=== PATIENT | female | born 1940 | race Caucasian/White ===

== ENCOUNTER 2021-07-29 11:05 | Inpatient (IN) | payer OTHER, SELFPAY ==
[2021-07-29] VITALS (57 sets, daily range): BP systolic 64–127; BP diastolic 36–73; PULSE 78–124; RESP 19–56; TEMP 33.9–37.7; O2SAT 93–99; BMI 24.3
--- NOTE | ~2021-07-29 | XR_ITS ---
EXAMINATION: XR chest 1V portable DATE: 08/05/2021 05:30 INDICATION: Septic shock. TECHNIQUE: A single frontal view of the chest was obtained. COMPARISON: Chest single view 08/04/2021, chest CT 08/03/2021 FINDINGS: Calcified right lung nodules and calcified right hilar lymph nodes are consistent with old granulomatous disease. The lung volumes are small. There are small pleural effusions. There are airsp carlos a opacities in the perihilar regions and at the lung bases. No pneumothorax. Cardiomegaly is noted. There is a right-sided central venous catheter with tip in right shoulder. IMPRESSION: 1. Airspace opacities in the perihilar regions and at the lung bases with improvement on the right an d worsening on the left, consistent with atelectasis versus pneumonia. 2. Small pleural effusions. 3. Cardiomegaly. Reviewed, dictated and finalized at location A. LY SUPPORT SPECIALIST IMPRESSION: 1. Airspace opacities in the perihilar regions and at the lung bases with impro vement on the right and worsening on the left, consistent with atelectasis vers us pneumonia. 2. Small pleural effusions. 3. Cardiomegaly.
--- NOTE | ~2021-07-29 | US_ITS ---
EXAMINATION: US venous doppler LE EXAM DATE: 07/29/2021 14:55 INDICATION: Rule out DVT TECHNIQUE: Multiple grayscale, color flow and Doppler images of the lower extremity deep venous syste ms bilaterally were obtained and reviewed. There is no prior study for comparison. FINDINGS: Right side: The right common femoral, femoral and profunda veins demonstrate normal color flow, respi ratory variation, augmentation and compressibility. Compressibility, color flow confirmed within the right popliteal, posterior tibial, peroneal, and greater saphenous veins. Left side: The left common femoral, femoral and profunda veins demonstrate normal color flow, respira tory variation, augmentation and compressibility. Compressibility, color flow confirmed within the l eft popliteal, posterior tibial, peroneal, and greater saphenous veins. IMPRESSION: 1. No lower extremity deep venous thrombosis bilaterally. Reviewed, dictated and finalized at location . AND MARBLE INSTALLER
--- NOTE | ~2021-07-29 | XR_ITS ---
EXAMINATION: XR chest 1V portable INDICATION: Septic shock TECHNIQUE: Portable AP chest at 0515 hours COMPARISON: 07/29/2021 FINDINGS: A right subclavian central venous catheter ends with its tip in the proximal right atrium. The lung volumes are low. Small pleural effusions are present. Cardiomegaly is noted. There are minim al airspace opacities of the lung bases. Calcified pulmonary nodules are consistent with old granulom atous disease. IMPRESSION: 1. Small pleural effusions. 2. Minimal bibasilar airspace opacity, likely atelectasis. Reviewed, dictated and finalized at location A. ERIZER
--- NOTE | ~2021-07-29 | CT_ITS ---
EXAMINATION: CT chest abdomen pelvis wo con DATE: 08/03/2021 10:24 INDICATION: Septic shock TECHNIQUE: Computed tomography (CT) of the chest, abdomen, and pelvis was performed without intraveno us contrast. Automated exposure control and iterative reconstruction technique were employed. The dos e-length product was 1717.15 mGy-cm. COMPARISON: 07/30/2021 FINDINGS: CHEST CT: Small bilateral pleural effusions with compressive atelectasis in the dependent aspect of all of the lobes of both lungs. Calcified right middle lobe nodules and calcified right hilar lymph nodes consis tent with old granulomatous disease. Cardiomegaly with pulmonary vascular congestion but without jim k pulmonary edema. No pericardial effusion. Thoracic aorta is normal in caliber. No pathologically en larged thoracic lymphadenopathy. Right subclavian central venous catheter with distal tip at the high right atrium. Chronic appearing T11 compression fracture with 20% anterior to central vertebral body height loss. ABDOMEN/PELVIS CT: Gallbladder is not visualized and likely surgically absent. Multiple hepatic and splenic calcificatio ns consistent with old granulomatous disease. Pancreas is normal. Again seen are bilateral adrenal no dules which are of relatively low density and which have been present with some increase in size sinc e 2015 which would favor adenomas. Multiple bilateral renal cysts, the largest on the left measuring 10 cm in maximal diameter. Conti catheter within the decompressed bladder. Uterus and bilateral adnex a are unremarkable. Small amount of ascites throughout the abdomen and pelvis. Again seen is diffuse wall thickening of the colon consistent with colitis. No pneumatosis, abscess or free intraperitoneal gas. A rectal tube is in place. There is high attenuation oral contrast material scattered throughou t the small bowel and colon. Postoperative change of prior gastric bypass procedure. Lumbar dextrosco liosis with severe spondylosis. Left total hip arthroplasty. Diffuse body wall edema. Again seen are relatively acute appearing left fifth-eighth rib fractures. IMPRESSION: 1. Persistent diffuse colonic wall thickening consistent with colitis which could be infectious, infl ammatory or ischemic in etiology. 2. Anasarca with small bilateral pleural effusions, small amount of ascites and extensive body wall e gregorio. 3. A few relatively acute appearing nondisplaced anterior left fifth-eighth rib fractures. Reviewed, dictated and finalized at location A. [employer] IMPRESSION: 1. Persistent diffuse colonic wall thickening consistent with colitis which cou ld be infectious, inflammatory or ischemic in etiology. 2. Anasarca with small bilateral pleural effusions, small amount of ascites and extensive body wall edema. 3. A few relatively acute appearing nondisplaced anterior left fifth-eighth rib fractures.
--- NOTE | ~2021-07-29 | CT_ITS ---
EXAMINATION: CT chest abdomen pelvis wo con EXAM DATE: 07/29/2021 15:49 INDICATION: Fall, altered mental status, sepsis. TECHNIQUE: Spiral CT of the chest, abdomen and pelvis was performed without contrast. Axial, beard l and sagittal images chest, abdomen and pelvis were reviewed. Coronal maximum intensity pixel image s of chest reviewed. The dose-length product (DLP) for this examination was 1284.42 mGy-cm. The exp osure was tailored according to patient size (auto mA exposure control), and iterative reconstruction (ASIR) was used as additional dose reduction technique. Comparison is made to prior examination from 10/13/2014. FINDINGS: CHEST: There is dependent bilateral subsegmental atelectasis. There are no pleural or pericardial e ffusions. Tracheobronchial tree is patent. There is no mediastinal, hilar or axillary lymphadenop athy. There is no pneumothorax. There is cardiomegaly. Right-sided subclavian venous line. No ev idence of coronary arterial calcification. ABDOMEN PELVIS: Left 6th rib has age-indeterminate fracture in the mid clavicular line. Splenic and l iver granulomata. Bilateral adrenal gland low density lesions, probably multiple adenomas, larger on both sides compared to 2015 exam. Pancreas is unremarkable. Gallbladder is unremarkable. No biliary obstruction. There is no nephrolithiasis or hydronephrosis. Multiple large bilateral renal cysts, l argest on the left side measuring 15 cm. The uterus is not identified and has likely been surgically resected. The bladder is collapsed with Conti catheter balloon anchor inside. There is no retroper itoneal or pelvic lymphadenopathy. There is mild diffuse colonic wall edema with fluid throughout the colon. Consider enterocolitis. The re are no findings to suggest appendicitis. The stomach and small bowel are unremarkable. No jasmin e intraperitoneal gas. There are no osteoblastic or osteolytic lesions identified. Moderate upper l umbar dextroscoliosis. Left hip replacement. IMPRESSION: 1. Findings consistent with colitis or even colonic fluid enterocolitis. 2. Increase in size of renal cysts and adrenal lesions probably adenomas. 3. Cardiomegaly. Dependent bibasilar subsegmental atelectasis. 4. Age indeterminate left 6th rib fracture anterolaterally, clinical correlation. Reviewed, dictated and finalized at location G. L SMELTER IMPRESSION: 1. Findings consistent with colitis or even colonic fluid enterocolitis. 2. Increase in size of renal cysts and adrenal lesions probably adenomas. 3. Cardiomegaly. Dependent bibasilar subsegmental atelectasis. 4. Age indeterminate left 6th rib fracture anterolaterally, clinical correlati on.
--- NOTE | ~2021-07-29 | CT_ITS ---
EXAMINATION: CT abdomen pelvis wo con EXAM DATE: 07/30/2021 10:58 INDICATION: Ischemic Colitis TECHNIQUE: Spiral CT of the abdomen was performed without contrast. Axial, coronal and sagittal morris ges of the abdomen were reviewed. The dose-length product (DLP) for this examination was 662.75 mGy- cm. The exposure was tailored according to patient size (auto mA exposure control), and iterative re construction (ASIR) was used as additional dose reduction technique. Comparison is made to prior exam ination from 07/29/2021. FINDINGS: Only mild aortic arterial sclerosis. Splenic and liver granulomata. Bilateral adrenal glan d low density lesions, statistically most likely adenomas. Pancreas is unremarkable. Liver is unremar kable. Patient may have had cholecystectomy. Pancreas unremarkable. There is no nephrolithiasis or hy dronephrosis. Multiple large bilateral renal cysts, largest on the left side measuring 15 cm. Possib le identification of an atrophic uterus. The bladder is collapsed with Conti catheter balloon anchor inside. There is no retroperitoneal or pelvic lymphadenopathy. There is mild diffuse colonic wall edema with fluid throughout the colon. Consider colitis or enteroc olitis. No pneumatosis or portal venous gas. Mildly dilated small bowel loops also with air-fluid lev els. There are no findings to suggest appendicitis. There is been interval placement of a nasogastri c tube. No free intraperitoneal gas. There are no osteoblastic or osteolytic lesions identified. Moderate upper lumbar dextroscoliosis. Left hip replacement. Possible acute left 6th rib fracture. There is mild cardiomegaly. There is progression of dependent subsegmental atelectasis and developmen t of trace pleural effusions. IMPRESSION: 1. Findings most consistent with enteritis and colitis unchanged. No pneumatosis, portal venous gas o r free intraperitoneal gas. 2. Bibasilar dependent segmental atelectasis, trace pleural effusions. 3. Possible left 6th rib fracture. Reviewed, dictated and finalized at location B. L GRINDER IMPRESSION: 1. Findings most consistent with enteritis and colitis unchanged. No pneumatosi s, portal venous gas or free intraperitoneal gas. 2. Bibasilar dependent segmental atelectasis, trace pleural effusions. 3. Possible left 6th rib fracture.
--- NOTE | ~2021-07-29 | XR_ITS ---
EXAMINATION: XR abdomen NG/feed tube insert DATE: 07/30/2021 07:09 INDICATION: Nasogastric tube placement TECHNIQUE: A supine view of the abdomen and lower chest was obtained for evaluation of feeding tube placement. COMPARISON: CT dated 07/29/2021 FINDINGS: Nasogastric tube tip in proximal side port in the body of the stomach. Right subclavian central venou s catheter tip near the superior cavoatrial junction. A few gas-filled but not frankly loops of bowel in the abdomen which is nonspecific. Mild bibasilar atelectasis and a few calcified nodules in the r ight lower lung zone consistent with old granulomatous disease. Cardiomegaly. Lumbar dextroscoliosis with severe spondylosis. IMPRESSION: 1. Nasogastric tube in stomach. 2. Nonspecific bowel gas pattern. 3. Cardiomegaly. Reviewed, dictated and finalized at location A. TIC YARN TWISTER HELPER
--- NOTE | ~2021-07-29 | XR_ITS ---
XR chest port-a-cath/central 07/29/2021 12:45 Indication: Central line placement Procedure: AP portable chest Comparison: 09/29/2009 Findings: There is right upper lobe airspace disease. Right subclavian PICC line tip near the cavoatr ial junction. Cardiomegaly. Elevated right diaphragm. Impression: 1: Right upper lobe airspace disease, suspicious for pneumonia. 2: Cardiomegaly. Reviewed, dictated and finalized at location A. ER BARREL Impression: 1: Right upper lobe airspace disease, suspicious for pneumonia. 2: Cardiomegaly.
--- NOTE | ~2021-07-29 | CT_ITS ---
EXAMINATION: CT brain wo con, CT cervical spine wo con EXAM DATE: 07/29/2021 15:48 INDICATION: ams, fall TECHNIQUE: Spiral CT of the head was performed without contrast. Axial, coronal and sagittal images were reviewed. Spiral CT of the cervical spine was performed without contrast. Axial images were rev iewed. Coronal and sagittal reformatted images were also reviewed. The dose-length product (DLP) fo r this examination was 605.33 (accession [id number]), 355.15 (accession [id number]) mGy-cm. The exposure was tailored according to patient size, and iterative reconstruction (ASIR) was used as additional dose reduction technique. Compared to head CT from 09/29/2009. FINDINGS: HEAD CT: There is no acute intraparenchymal hemorrhage. No evidence of intraparenchymal brain mass l esion. No evidence of acute infarction. There is no mass effect or midline shift. There is no obstru ctive hydrocephalus suspected. There are no extra-axial collections. There are no acute calvarial f ractures. The orbits are unremarkable. Soft tissue is unremarkable. The visualized sinuses and mas toid air cells are well aerated. CERVICAL CT: There is no evidence of acute cervical fracture. The odontoid process is intact. Pre- dens space is normal. Prevertebral soft tissue is normal. There are no soft tissue abnormalities id entified. There is no disc space widening or traumatic vertebral body subluxation suspected. Modera te to severe disc disease at C4-5, moderate to severe bilateral neural foraminal stenosis at these 2 levels. A detailed level by level evaluation of spondylosis can be added as addendum if requested. IMPRESSION: 1. No acute intracranial findings or cervical fracture. 2. Moderate to severe midcervical spondylosis. Reviewed, dictated and finalized at location G. S BRANCH MANAGER IMPRESSION: 1. No acute intracranial findings or cervical fracture. 2. Moderate to severe midcervical spondylosis.
--- NOTE | ~2021-07-29 | XR_ITS ---
EXAMINATION: XR barium swallow modified DATE: 08/01/2021 14:30 INDICATION: Dysphagia. TECHNIQUE: The patient was given barium-containing material of multiple consistencies to swallow by jesus nicholson speech pathologist while I performed fluoroscopy. Dose-area product was 3.702 Gy-cm2. 7.1 minutes fluoroscopy time FINDINGS: Oral Stage: Reduced lingual movement Pharyngeal Phase: Reduced laryngeal elevation and laryngeal abduction Reduced tongue base retraction Reduced pharyngeal squeeze Vallecular and piriform sinus residue Laryngeal penetration and aspiration Cervical/Esophageal Stage: Within functional limits IMPRESSION: Modified esophagram findings as above. Please refer to the speech [facility]. Reviewed, dictated and finalized at Location A. Reviewed, dictated and finalized at location A. OBIOLOGY ANALYST IMPRESSION: Modified esophagram findings as above. Please refer to the speech t herapy report for specific recommendations.
--- NOTE | 2021-07-29 11:24 | ECG_ITS ---
Measurements Intervals [place] Rate: 88 P: 35 AR: 140 QRS: -34 QRSD: 128 T: 79 QT: 353 QTc: 428 Interpretive Statements SINUS RHYTHM ATRIAL PREMATURE COMPLEX LEFT AXIS DEVIATION INTRAVENTRICULAR CONDUCTION DELAY DELAYED PRECORDIAL R/S TRANSITION MINIMAL Q WAVES- HIGH LATERAL LEADS BORDERLINE ST-T WAVE ABNORMALITY- HIGH LATERAL LEADS BASELINE ARTIFACT- II, III BORDERLINE ECG Electronically Signed On 07-29-2021 14:23:19 CREDIT COLLECTIONS MANAGER by Willis Herrera D.O.
--- NOTE | 2021-07-29 11:34 | PC.NURSE ---
Pt cleaned up from stool. Sol Chan applied, pt's temp increasing. Fluids infusing via fluid warmer.
[2021-07-29] MEDS: SODIUM CHLORIDE 0.9% IV 1,000 ML 999 ML IV CONT (11:37)
--- NOTE | 2021-07-29 11:47 | ED.GENADULT ---
HPI - General Adult General Chief complaint: Altered Mental Status Stated complaint: AMS Time Seen by Provider: 07/29/21 11:12 Source: patient, EMS and RN notes reviewed History of Present Illness HPI narrative: Patient is a 81 y/o female brought in by EMS for altered mental status. Patient is confused and unable to provide any history. She denies any pain. She reportedly had a welfare check yesterday around 2:45 PM found to be laying in bed but acting normal. This morning she was found laying on the ground lethargic by her helper. It's unknown how long she has been on the ground. Patient does not know if she fell or how she go to the floor. Related Data Home Medications Medication Instructions Recorded Confirmed acetaminophen 500 mg PO Q6H PRN 07/29/21 07/29/21 carbidopa-levodopa 1.5 tablet PO TID 07/29/21 07/29/21 clonazepam 0.5 mg PO BID 07/29/21 07/29/21 docusate sodium [Colace] 100 mg PO PRN PRN 07/29/21 07/29/21 famotidine 20 mg PO DAILY 07/29/21 07/29/21 furosemide 20 mg PO DAILY 07/29/21 07/29/21 meloxicam 15 mg PO DAILY 07/29/21 07/29/21 metoprolol succinate 100 mg PO DAILY 07/29/21 07/29/21 ofloxacin 1 drp OPHTHALMIC (EYE) DAILY 07/29/21 07/29/21 potassium chloride 20 meq PO DAILY 07/29/21 07/29/21 primidone 50 mg PO DAILY 07/29/21 07/29/21 primidone 100 mg PO HS 07/29/21 07/29/21 sertraline 100 mg PO DAILY 07/29/21 07/29/21 simvastatin 20 mg PO DAILY 07/29/21 07/29/21 trazodone 100 mg PO HS 07/29/21 07/29/21 Allergies Allergy/AdvReac Type Severity Reaction Status Date / Time No Known Allergies Allergy Unverified 12/23/16 09:33 Review of Systems Review of Systems: ROS unobtainable: Yes unobtainable due to mental status PMFSH Family History Family History Other Diabetes mellitus Family history of arthritis Family history of cardiovascular disease Hypertension Social History Social History Smoking status: Former smoker Alcohol intake: never Substance use: never Spiritual care concerns: No Exam Const: General: ill appearing Orientation/consciousness: oriented to person, oriented to place, confusion and lethargic HENMT: Head: normocephalic Ears: external ears normal General nose exam: Normal external nose present Eyes: General: appearance normal, both eyes and all related structures Conjunctivae: conjunctivae normal Neck: Neck: normal visual inspection and full ROM Chest: Chest palpation & inspection: normal inspection of the chest and no tenderness Resp: Effort & Inspection: normal respiratory effort Auscultation: clear to auscultation bilaterally Cardio: Rate: regular rate Rhythm: regular rhythm GI: GI Palp: No abdominal tenderness and Yes Soft to palpation Skin: General skin exam: normal color and turgor normal Neuro: General: oriented to person, oriented to place and confusion Cognition (Neuro): abnormal cognition Extrem: General: normal to inspection, full ROM and no pedal edema Psych: Appearance: grossly normal Mental Status: mental status grossly normal Attitude: Guarded attititude/behavior present Course Consultations Consultation #1: Discussed with MELIA Chaparro, who agrees to admit. Date: 07/29/21 Time: 13:24 Consultation #2: Discussed with Dr. Ulloa, who agrees to consult. Date: 07/29/21 Time: 13:28 Consultation #3: Discussed with Dr. Uribe, who agrees to consult. Date: 07/29/21 Time: 14:11 Vital Signs Vital signs: Vital Signs Temperature 34.8 C L 07/29/21 11:09 Pulse Rate 96 07/29/21 11:09 Respiratory Rate 27 H 07/29/21 11:09 Blood Pressure 116/68 07/29/21 11:09 Pulse Oximetry 96 07/29/21 11:09 Temperature 37.7 C H 07/29/21 16:11 Pulse Rate 98 07/29/21 16:11 Respiratory Rate 27 H 07/29/21 16:11 Blood Pressure 123/71 07/29/21 16:11 Pulse Oximetry 96 07/29/21 16:11 Procedures Central Line Placement Right SC:
[2021-07-29 12:02] LABS: Basophils Percent Auto 0.2 % (0.2-1.2); Hematocrit 44.8 % (37.0-47.0); Hemoglobin 14.2 g/dL (12.0-15.0); Immature Granulocyte Absolute 0.04 K/mm3 (0.00-0.031); Immature Granulocyte Percent A 0.5 % (0-0.5); Lymphocytes Absolute Auto 0.95 K/mm3 (0.9-3.2); Lymphocytes Percent Auto 11.4 % (18.3-44.2); Mean Corpuscular HGB Conc 31.7 g/dl (32-36); Mean Corpuscular Hemoglobin 33.3 pg (26-34); Mean Corpuscular Volume 105.2 fl (80-100); Mean Platelet Volume 11.1 fl (7.4-10.4); Monocytes Absolute Auto 0.5 K/mm3 (0.1-0.6); Monocytes Percent Auto 5.5 % (2.6-8.5); Neutrophils Absolute Auto 6.9 K/mm3 (1.3-6.7); Neutrophils Percent Auto 82.4 % (45.5-73.1); Nucleated Red Blood Cells Perc 0.2 % (0.0-0.2); Platelet Count Result 271 k/mm3 (150-375); Red Blood Count 4.26 M/mm3 (4.2-5.4); Red Cell Distribution Width 12.7 % (11.5-14.5); White Blood Count 8.4 K/mm3 (4.5-10.0)
--- NOTE | 2021-07-29 12:06 | PC.NURSE ---
Pt with hypotensive MAP's x 3, MD Crook in room preparing for central line placement. Pt very lethargic but responds to name/voice, answering questions, oriented to person and place.
[2021-07-29 12:12] LABS: INR 1.2; Prothrombin Time 14.9 Seconds (11.1-14.7)
[2021-07-29 12:13] LABS: Partial Thromboplastin Time 25.8 SECONDS (22.3-36.8)
[2021-07-29 12:25] LABS: Potassium 6.8 mmol/L (3.4-5.0)
[2021-07-29 12:37] LABS: Troponin I 0.069 ng/mL (0.000-0.034)
--- NOTE | 2021-07-29 12:40 | PC.NURSE ---
X-ray completed, MD Crook viewed and told this RN okay to use central line for norepinephrine infusion. Pt trendelenburg position and remains hypotensive. Sol ginger remains on high.
[2021-07-29 12:44] LABS: SARS-CoV-2 RNA PCR Negative
[2021-07-29 12:45] LABS: Add Urine Microscopic? YES; Appearance Urine Cloudy (Clear); Bilirubin Urine 1+ (Negative); Blood Urine 2+ (Negative); Color Urine Amber (Yellow); Glucose Urine UA Negative (Negative); Ketones Urine Trace mg/dL (Negative); Leukocyte Esterase Ur Trace LEU/UL (Negative); Nitrate Urine Negative (Negative); Protein Urine 1+ mg/dL (Negative); Specific Grav Ur 1.025 (1.001-1.035); Squamous Epithelial Cell Urine Few /hpf (Few)
[2021-07-29 12:51] LABS: Lactic Acid Reflex 8.6 mmol/L (0.7-2.1)
[2021-07-29] MEDS: NOREPINEPHRINE 8 MG/D5W 250 ML 8 MG/250 ML BAG 7.5 MG IV CONT (13:00)
[2021-07-29] MEDS: LACTATED RINGERS 2,200 ML/1,000 ML BAG 999 ML IV CONT (13:08)
[2021-07-29 13:09] LABS: Alanine Aminotransferase 29 U/L (4-35); Albumin Level 4.3 g/dL (3.5-5.1); Alkaline Phosphatase 102 U/L (38-126); Anion Gap 27 mmol/L (8-16); Aspartate Amino Transferase 252 U/L (14-36); Bilirubin,Total 0.9 mg/dL (0.2-1.3); Blood Urea Nitrogen 90 mg/dL (7-17); Calcium 8.9 mg/dL (8.4-10.2); Carbon Dioxide 8 mmol/L (22-30); Chloride 103 mmol/L (98-107); Creatine Kinase 8020 U/L (30-135); Estimated Glomerular Filt Rate 8; Glucose 133 mg/dL (65-110); Sodium 138 mmol/L (137-145)
[2021-07-29] MEDS: CALCIUM GLUCONATE 1,000 MG/10 ML VIAL 1000 MG IV PUSH (13:37)
[2021-07-29] MEDS: SODIUM BICARBONATE 8.4% 50 MEQ/50 ML SYRINGE IV PUSH ×2 (13:40→21:53)
[2021-07-29] MEDS: DEXTROSE 50% 25 GM/50 ML SYRINGE IV PUSH ×2 (13:56→21:52)
[2021-07-29] MEDS: INSULIN HUMAN REGULAR (*BKC) 100 UNITS/ML 10 UNITS IV PUSH ×2 (13:59→21:53)
[2021-07-29] MEDS: cefTRIAXone 2 GM in SODIUM CHLORIDE 0.9% IV 100 ML 200 ML IVPB (14:21)
--- NOTE | 2021-07-29 14:28 | WPDCNINT ---
Assessment and Plan Assessment and plan (1) Septic shock: Code(s): A41.9 - Sepsis, unspecified organism; R65.21 - Severe sepsis with septic shock Status: Acute Assessment and Plan: secondary to pneumonia with component of hypovolemia from diuresis check CT chest blood cultures and urine Legionella and pneumococcal antigen empiric Flagyl, Rocephin and azithromycin for aspiration and community-acquired coverage IV fluid bolus and infusion Levophed titration to maintain map (2) Acute kidney injury: Code(s): N17.9 - Acute kidney failure, unspecified Status: Acute Assessment and Plan: secondary to septic shock, rhabdomyolysis, hypovolemia from Lasix and NSAIDs that she is on CT abdomen pelvis is pending to rule out any stones or obstruction hold Lasix potassium and meloxicam aggressive volume resuscitation. she is receiving close to 3 L bolus in the ER and then will continue on IV fluids with bicarb at 150 mL/hour repeat BMP in few hours consult nephrology (3) Hyperkalemia: Code(s): E87.5 - Hyperkalemia Status: Acute Assessment and Plan: she is receiving insulin D50 calcium bicarb and Kayexalate in ER recheck BMP in few hours (4) Metabolic acidosis: Code(s): E87.2 - Acidosis Status: Acute Assessment and Plan: she received IV bicarb push for hyperkalemia in the ER. I will start patient on IV fluids with bicarb (5) Parkinsons: Code(s): G20 - Parkinson's disease Status: Acute Assessment and Plan: continue Sinemet and primidone (6) Pneumonia: Code(s): J18.9 - Pneumonia, unspecified organism Status: Acute Assessment and Plan: could be community-acquired pneumonia versus aspiration continue coverage for both as above (7) Encephalopathy: Code(s): G93.40 - Encephalopathy, unspecified Status: Acute Assessment and Plan: likely toxic metabolic encephalopathy as patient now is alert oriented x3 CT head is pending TSH is normal (8) Rhabdomyolysis: Code(s): M62.82 - Rhabdomyolysis Status: Acute Assessment and Plan: elevated CK likely from laying on floor. IV fluids with bicarb monitor CK level (9) Hyperlipidemia: Code(s): E78.5 - Hyperlipidemia, unspecified Status: Acute Assessment and Plan: hold statin due to elevated AST and CK level (10) Elevated liver enzymes: Code(s): R74.8 - Abnormal levels of other serum enzymes Status: Acute Assessment and Plan: AST elevated likely from rhabdomyolysis monitor (11) Elevated troponin: Code(s): R77.8 - Other specified abnormalities of plasma proteins Status: Acute Assessment and Plan: mildly elevated troponin in presence of septic shock and acute kidney injury EKG reviewed and no ST elevation. Patient denies any chest pain serial troponin add aspirin hold her beta-maria g due to shock check echocardiogram Additional Plan DVT prophylaxis - SCDs for now until head CT report is back Stress ulcer prophylaxis - continue home PPI Nutrition - renal diet Code Status - I discussed code status with patient in detail. She wishes to be DNR and DNI. I explained her that in event of cardiac arrest if we 'do not resuscitate' her, she will . Patient verbalized understanding of implications of her choice and states that she still wants to be DNR and DNI. I also spoke to patient's daughter and updated her with patient's choice of code status. I also updated her with patient's current status, results of testing, current treatment plan I answered all her questions. Total Critical Care Time - 40 minutes Due to a high probability of clinically significant, life threatening deterioration, the patient required my highest level of preparedness to intervene emergently and I personally spent this critical care time directly and personally managing the
--- NOTE | 2021-07-29 14:55 | PC.NURSE ---
Sol miles turned off. Pt no longer receiving warmed fluids due to increased temp. Increased norepinephrine requirements as well with increased temp, titrated per MAR.
[2021-07-29] MEDS: NOREPINEPHRINE 8 MG/D5W 250 ML 8 MG/250 ML BAG 18.75 MG IV CONT (15:13)
--- NOTE | 2021-07-29 15:15 | PM.IMHP ---
H&P: HPI History of Present Illness Date/Time: 07/29/21 15:15 Chief Complaint: Altered mental status. Narrative: This is an 81-year-old female with Parkinson's, hypertension, and hyperlipidemia who presented to the emergency department today via EMS from home for evaluation of altered mental status. The patient is awake and alert at the time of my evaluation (much improved after receiving IV fluid rehydration per nursing report) though she is not able to provide an accurate history as she does not really remember the last couple of days. As such a majority of the following is obtained via a review of her electronic medical records. The patient's daughter, who lives in [place], reports the patient had cold symptoms about a week ago. Yesterday the patient did not answer the phone and her daughter sent police over for a welfare check. It is my understanding that she was found lying in her bed, reported feeling okay at that time, and was alert and oriented. Today a property caretaker came to her home for the 1st time the patient was found lying on the ground, confused. The patient did not know how she ended up on the ground. On arrival to the emergency department she was found to be in septic shock presumably due to pneumonia with an acute kidney injury hyperkalemia and rhabdomyolysis. A central line has been inserted and she is currently requiring vasopressor support. At this time she is resting comfortably and feels better under the Sol Hugger. She mentions a poor appetite recently but has no other specific complaints. She sinus congestion, rhinorrhea, otalgia, odynophagia, cough, chest pain, nausea, vomiting, diarrhea, and dysuria. Review of Systems Review of Systems: Twelve systems were reviewed and are negative except for as per HPI. Limited due to her confusion with regards to the last couple of days, however. [facility] Past Medical History Medical History (Updated 07/29/21 @ 23:35 by Krysta Manning PA-C) Bowel obstruction Glaucoma Hyperlipidemia Hypertension Pancreatitis Parkinsons disease Surgical History Surgical History (Updated 07/29/21 @ 23:35 by Krysta Manning PA-C) History of arthroscopy of left knee History of cholecystectomy History of laparotomy With reports of bowel resection secondary to obstructions, unable to confirm. History of total left hip arthroplasty Family History Family History Other Diabetes mellitus Family history of arthritis Family history of cardiovascular disease Hypertension Social History Social History (Updated 07/29/21 @ 23:36 by Krysta Manning PA-C) Social History: Surrogate decision maker: Samson Black or Griselda Matthews (children). Code status: Do not resuscitate. Smoking status: Former smoker Alcohol intake: never Substance use: never Additional living arrangements comments: The patient lives in her own home in [place]. Additional occupation/education comments: Retired. Meds Home Medications and Allergies Home Medications Medication Instructions Recorded Confirmed Type acetaminophen 500 mg PO Q6H PRN 07/29/21 07/29/21 History carbidopa-levodopa 1.5 tablet PO TID 07/29/21 07/29/21 History clonazepam 0.5 mg PO BID 07/29/21 07/29/21 History docusate sodium [Colace] 100 mg PO PRN PRN 07/29/21 07/29/21 History famotidine 20 mg PO DAILY 07/29/21 07/29/21 History furosemide 20 mg PO DAILY 07/29/21 07/29/21 History meloxicam 15 mg PO DAILY 07/29/21 07/29/21 History metoprolol succinate 100 mg PO DAILY 07/29/21 07/29/21 History ofloxacin 1 drp OPHTHALMIC (EYE) DAILY 07/29/21 07/29/21 History potassium chloride 20 meq PO DAILY 07/29/21 07/29/21 History primidone 50 mg PO DAILY 07/29/21 07/29/21 History primidone 100 mg PO HS 07/29/21 07/29/21 History sertraline 100 mg PO DAILY 07/29/21 07/29/21 History simvastatin 20 mg PO DAILY 07/29/21 07/29/21 History trazodone 100 mg PO HS 07/29/21 07/29/21 History
[2021-07-29 15:31] LABS: Glucose Point of Care 157 mg/dl (65-105)
[2021-07-29 15:38] LABS: Reflex Lactic Acid Yes or No Add Lactic
--- NOTE | 2021-07-29 16:16 | PC.NURSE ---
Pt had episode liquid diarrhea. Cleaned up and clean linens applied. Pt to be transferred to ICU with RN at this time.
--- NOTE | 2021-07-29 16:38 | ADMGEN ---
This patient, Alba Black, was admitted to Intensive Care Unit-3. Patient/family oriented to hospital policies and general routines including ID bracelet, bed and alarms, visiting hours, pain management, procedures, bathroom and other care routines, personal items, smoking policy, room service/diet, and visiting hours. Information on how to activate the Rapid Response Team has been discussed. Patient/Family are encouraged to report perceived risks to care and to ask questions if they do not understand what they are told or what they should do.
[2021-07-29 17:11] LABS: Glucose Point of Care 101 mg/dl (65-105)
[2021-07-29] MEDS: CENTRAL LINE FLUSH 10 ML IV PUSH ×2 (17:35→22:23)
[2021-07-29] MEDS: SODIUM CHLORIDE 0.9% IV 500 ML 999 ML IV CONT (17:36)
[2021-07-29] MEDS: metroNIDAZOLE 500 MG/ISO 100ML 500 MG/100 ML BAG 100 MG IVPB ×2 (17:37→22:18)
[2021-07-29] MEDS: SODIUM BICARBONATE 8.4% 150 MEQ in WATER, STERILE FOR INJECTION 950 ML IV CONT (17:40)
[2021-07-29 17:55] LABS: Anion Gap 15 mmol/L (8-16); Blood Urea Nitrogen 95 mg/dL (7-17); Calcium 7.9 mg/dL (8.4-10.2); Carbon Dioxide 16 mmol/L (22-30); Chloride 105 mmol/L (98-107); Estimated CRCL calculation 8 ml/min; Estimated Glomerular Filt Rate 10; Glucose 96 mg/dL (65-110); Potassium 5.8 mmol/L (3.4-5.0); Sodium 136 mmol/L (137-145)
[2021-07-29] MEDS: PRIMIDONE 50 MG TABLET 100 MG PO (17:55)
[2021-07-29 21:47] LABS: Glucose Point of Care 64 mg/dl (65-105)
[2021-07-30] VITALS (25 sets, daily range): BP systolic 90–174; BP diastolic 48–106; PULSE 80–151; RESP 17–39; TEMP 37.7–38.1; O2SAT 82–100
--- NOTE | 2021-07-30 | ECHO_ITS ---
Patient Info Name: Alba Black Age: 81 years : 1940 Gender: Female Ht: 54 in Wt: 158 lbs BSA: 1.70 m2 HR: 118 bpm BP: 116 / 63 mmHg Heart Rhythm: Atrial Fibrillation Exam Date: 07/30/2021 8:51 AM Exam Location: [facility] Pulmonary Patient Status: Inpatient Admit Date: 07/29/2021 Staff Ordering Physician: Alfredo Ragland MD Interpreter Deaf: Kuldeep Qureshi, MARIA ISABELCS, RT Attending Provider: Mega Padilla MD Exam Type: CA echo doppler color flow Study Info Indications I50.9 - Heart failure, unspecified Complete two-dimensional, color flow and Doppler transthoracic echocardiogram is performed. Summary 1. Complete two-dimensional, color flow and Doppler transthoracic echocardiogram is performed. 2. Left ventricular chamber dimension is normal. 3. Left ventricular systolic function is normal, estimated at 55-60%. 4. Right ventricular chamber dimension is moderately enlarged. 5. Mild biatrial dilation. 6. Small amount of mitral and tricuspid valve insufficiency. 7. Moderately elevated pulmonary artery pressure. Left Ventricle Left ventricular chamber dimension is normal. Left ventricular systolic function is normal, estimated at 55-60%. The left ventricular diastolic function is indeterminate. Right Ventricle Right ventricular chamber dimension is moderately enlarged. Left Atria Left atrial chamber dimension is mildly enlarged. Right Atria Right atrial chamber dimension is mildly enlarged. Aortic Valve The aortic valve is normal. Pulmonic Valve The pulmonic valve is normal. Mitral Valve The mitral valve has normal leaflets. There is trace mitral valve regurgitation. Tricuspid Valve The tricuspid valve leaflets are normal. There is mild tricuspid valve regurgitation. Moderate pulmonary hypertension, estimated pulmonary arterial systolic pressure is 60 mmHg. Pericardium/Pleural The pericardium appears normal. Aorta The aortic root size at the sinus of Valsalva is normal. Left Ventricular Outflow Tract Name Value Normal LVOT 2D LVOT Diameter 2.0 cm LVOT Doppler LVOT Peak Gradient 10 mmHg LVOT Mean Gradient 6 mmHg LVOT VTI 23 cm LVOT VTI/AV VTI Ratio 0.9 LVOT Stroke Volume 76 ml LVOT CO 9.2 l/min LVOT CI 5.4 l/min/m2 Mitral Valve Name Value Normal MV Doppler MV Decel Dane 278 cm/s2 MV PHT 51 ms MV Area (PHT) 4.3 cm2 4.0-5.0 MV Regurgitation Doppler MR Peak Gradient 142 mmHg MV Diastolic Function
[2021-07-30 00:32] LABS: Glucose Point of Care 109 mg/dl (65-105)
[2021-07-30] MEDS: SODIUM BICARBONATE 8.4% 150 MEQ in WATER, STERILE FOR INJECTION 950 ML IV CONT ×2 (00:47→08:20)
[2021-07-30] MEDS: NOREPINEPHRINE 8 MG/D5W 250 ML 8 MG/250 ML BAG 18.75 MG IV CONT (03:44)
[2021-07-30 05:16] LABS: Hematocrit 38.1 % (37.0-47.0); Hemoglobin 13.4 g/dL (12.0-15.0); Immature Granulocyte Absolute 0.06 K/mm3 (0.00-0.031); Immature Granulocyte Percent A 0.7 % (0-0.5); Lymphocytes Absolute Auto 0.34 K/mm3 (0.9-3.2); Lymphocytes Percent Auto 3.8 % (18.3-44.2); Mean Corpuscular HGB Conc 35.2 g/dl (32-36); Mean Corpuscular Hemoglobin 33.1 pg (26-34); Mean Corpuscular Volume 94.1 fl (80-100); Mean Platelet Volume 10.8 fl (7.4-10.4); Monocytes Absolute Auto 0.6 K/mm3 (0.1-0.6); Monocytes Percent Auto 6.5 % (2.6-8.5); Neutrophils Absolute Auto 7.9 K/mm3 (1.3-6.7); Nucleated Red Blood Cells Perc 0.3 % (0.0-0.2); Platelet Count Result 209 k/mm3 (150-375); Red Blood Count 4.05 M/mm3 (4.2-5.4); Red Cell Distribution Width 12.3 % (11.5-14.5); White Blood Count 8.9 K/mm3 (4.5-10.0)
[2021-07-30 05:59] LABS: Alanine Aminotransferase 28 U/L (4-35); Albumin Level 2.9 g/dL (3.5-5.1); Alkaline Phosphatase 93 U/L (38-126); Anion Gap 14 mmol/L (8-16); Aspartate Amino Transferase 436 U/L (14-36); Bilirubin,Total 0.7 mg/dL (0.2-1.3); Blood Urea Nitrogen 95 mg/dL (7-17); Calcium 7.2 mg/dL (8.4-10.2); Carbon Dioxide 21 mmol/L (22-30); Chloride 98 mmol/L (98-107); Estimated CRCL calculation 8 ml/min; Estimated Glomerular Filt Rate 10; Glucose 90 mg/dL (65-110); Magnesium 2.2 mg/dL (1.6-2.3); Phosphorus 7.1 mg/dL (2.5-4.5); Sodium 133 mmol/L (137-145)
[2021-07-30] MEDS: metroNIDAZOLE 500 MG/ISO 100ML 500 MG/100 ML BAG 100 MG IVPB ×3 (06:09→22:00)
[2021-07-30] MEDS: CENTRAL LINE FLUSH 10 ML IV PUSH ×3 (06:10→22:00)
[2021-07-30 06:21] LABS: Creatine Kinase 7468 U/L (30-135)
[2021-07-30 06:28] LABS: Toxigenic C. Diff NEGATIVE (NEGATIVE)
[2021-07-30] MEDS: DEXTROSE 50% 25 GM/50 ML SYRINGE IV PUSH (07:08)
[2021-07-30] MEDS: INSULIN HUMAN REGULAR (*BKC) 100 UNITS/ML 10 UNITS IV PUSH (07:08)
--- NOTE | 2021-07-30 07:41 | ECG_ITS ---
Measurements Intervals [place] Rate: 119 P: 19 TX: 125 QRS: -37 QRSD: 106 T: 77 QT: 315 QTc: 443 Interpretive Statements SINUS TACHYCARDIA ATRIAL TRIPLETS LEFT AXIS DEVIATION POOR R WAVE PROGRESSION, ANTERIOR LEADS MINIMAL Q WAVES- HIGH LATERAL LEADS BORDERLINE ST-T WAVE ABNORMALITY- HIGH LATERAL LEADS BASELINE ARTIFACT- V5 ABNORMAL ECG Electronically Signed On 07-30-2021 13:40:00 MEDICATION ASSISTANT by Willis Herrera D.O.
[2021-07-30 08:04] LABS: Glucose Point of Care 203 mg/dl (65-105)
[2021-07-30] MEDS: ALBUMIN HUMAN 5% 25 GM/500 ML BTL IV CONT (08:19)
[2021-07-30] MEDS: CALCIUM GLUC 1,000 MG/NS 50 ML 1,000 MG/50 ML BAG 100 MG IVPB (08:19)
[2021-07-30] MEDS: PANTOPRAZOLE SODIUM IV 40 MG VIAL IV PUSH (08:21)
[2021-07-30 08:50] LABS: Lactic Acid Reflex 7.9 mmol/L (0.7-2.1)
--- NOTE | 2021-07-30 09:20 | WPDINTPN ---
Progress Note: A&P Assessment and Plan (1) Septic shock: Code(s): A41.9 - Sepsis, unspecified organism; R65.21 - Severe sepsis with septic shock Status: Acute Assessment and Plan: secondary to colitis with component of hypovolemia from diuresis CT chest does not suggest pneumonia. blood cultures and urine Legionella and pneumococcal antigen Ordered and pending change antibiotics to Invanz and Flagyl IV fluid bolus and infusion Levophed titration to maintain map Add hydrocortisone, vasopressin infusion 25% albumin her lactate continues to increase despite volume resuscitation and vasopressors. Increase lactate and abdominal pains suggestive of possible ischemic colitis. Will send patient repeat CT abdomen pelvis without contrast consult surgery monitor lactic acid level (2) Atrial fibrillation: Code(s): I48.91 - Unspecified atrial fibrillation Status: Acute Assessment and Plan: patient has irregular narrow complex tachycardia on the monitor which is suggestive of atrial fibrillation Check EKG to confirm. Start amiodarone bolus and infusion. Not a candidate for aspirin or anticoagulation at this time (3) Colitis: Code(s): K52.9 - Noninfective gastroenteritis and colitis, unspecified Status: Acute Assessment and Plan: CT yesterday showed mild diffuse colonic wall edema with fluid throughout the colon. Consider enterocolitis C diff was negative patient has lot more tenderness today and her lactic acid is elevated despite volume resuscitation and vasopressors. Suspect ischemic colitis and I suspect patient was hypotensive for long time at home before presenting to the hospital repeat CT abdomen pelvis STAT antibiotics changed to Invanz and Flagyl consult surgery monitor lactic acid level will give another 1 L saline bolus (4) Acute kidney injury: Code(s): N17.9 - Acute kidney failure, unspecified Status: Acute Assessment and Plan: secondary to septic shock, rhabdomyolysis, hypovolemia from Lasix and NSAIDs that she is on CT abdomen pelvis did not show stones or obstruction continue to hold hold Lasix potassium and meloxicam patient received aggressive volume resuscitation. I will give another 1 L bolus this time. continue IV fluids with bicarb at 150 mL/hour repeat BMP in few hours Nephrology Consulted (5) Hyperkalemia: Code(s): E87.5 - Hyperkalemia Status: Acute Assessment and Plan: she received insulin D50 calcium bicarb yesterday Kayexalate was ordered but was not given I have given a repeat dose of insulin D50, bicarb this morning, requested nurse to administer Kayexalate to NG tube recheck BMP in few hours (6) Metabolic acidosis: Code(s): E87.2 - Acidosis Status: Acute Assessment and Plan: she received IV bicarb push for hyperkalemia in the ER. I will start patient on IV fluids with bicarb (7) Parkinsons: Code(s): G20 - Parkinson's disease Status: Acute Assessment and Plan: continue Sinemet hold primidone (8) Pneumonia: Code(s): J18.9 - Pneumonia, unspecified organism Status: Acute Assessment and Plan: could be component of aspiration but CT was unremarkable changed antibiotic as above (9) Encephalopathy: Code(s): G93.40 - Encephalopathy, unspecified Status: Acute Assessment and Plan: likely toxic metabolic encephalopathy as patient now is alert oriented x3 CT head was negative for acute change TSH is normal (10) Rhabdomyolysis: Code(s): M62.82 - Rhabdomyolysis Status: Acute Assessment and Plan: elevated CK likely from laying on floor. level is marginally improved IV fluids with bicarb monitor CK level (11) Hyperlipidemia: Code(s): E78.5 - Hyperlipidemia, unspecified Status: Acute Assessment and Plan: hold statin due to elevated AST and CK
[2021-07-30] MEDS: SODIUM POLYSTYRENE SULFONONATE 15 GM/60 ML BTL 30 GM PO (09:21)
[2021-07-30] MEDS: VASOPRESSIN INJ 100 UNITS in DEXTROSE 5% 95 ML IV CONT (09:32)
[2021-07-30] MEDS: SODIUM CHLORIDE 0.9% IV 1,000 ML 999 ML IV CONT ×2 (09:35→13:02)
[2021-07-30] MEDS: ERTAPENEM SODIUM 0.5 GM in SODIUM CHLORIDE 0.9% IV 50 ML IVPB (09:46)
[2021-07-30 11:35] LABS: Reflex Lactic Acid Yes or No Add Lactic
[2021-07-30 11:52] LABS: Glucose Point of Care 78 mg/dl (65-105)
[2021-07-30 12:19] LABS: Lactic Acid Reflex 3.6 mmol/L (0.7-2.1)
[2021-07-30 12:31] LABS: Anion Gap 14 mmol/L (8-16); Blood Urea Nitrogen 91 mg/dL (7-17); Calcium 6.6 mg/dL (8.4-10.2); Carbon Dioxide 23 mmol/L (22-30); Chloride 97 mmol/L (98-107); Estimated CRCL calculation 10 ml/min; Estimated Glomerular Filt Rate 10; Glucose 102 mg/dL (65-110); Potassium 5.2 mmol/L (3.4-5.0); Sodium 134 mmol/L (137-145)
[2021-07-30 12:33] LABS: Troponin I 0.382 ng/mL (0.000-0.034)
[2021-07-30] MEDS: AMIODARONE 150 MG/D5W 100 ML 150 MG/100 ML BAG 600 MG IV CONT (12:55)
[2021-07-30] MEDS: AMIODARONE 360 MG/D5W 200 ML 360 MG/200 ML BAG 33.33 MG IV CONT (12:55)
[2021-07-30] MEDS: SODIUM CHLORIDE 0.9% IV 1,000 ML 100 ML IV CONT (13:02)
[2021-07-30] MEDS: HYDROCORTISONE SODIUM SUCCINATE 100 MG/2 ML VIAL IV PUSH ×2 (13:13→21:52)
[2021-07-30] MEDS: ALBUMIN HUMAN 25% 25 GM/100 ML 100 ML IVPB ×2 (13:15→20:09)
--- NOTE | 2021-07-30 13:20 | PM.CNGS ---
Assessment and Plan Assessment and plan (1) Colitis: Code(s): K52.9 - Noninfective gastroenteritis and colitis, unspecified Status: Acute Assessment and Plan: Initial CT scan and repeat CT of the abdomen and pelvis reviewed and suggest enterocolitis without any evidence of pneumatosis, portal venous gas, or free air. Lactic acid fluctuated with a trend up this morning, but has since come back down to 3.6 likely in response to current treatment. C Diff negative and other stool studies being sent. Her abdominal exam is benign and she is not currently complaining of any abdominal pain. We would recommend to continue with IV fluid resuscitation, broad-spectrum IV antibiotics, and trend labs. She appears to be improving with the current medical treatment at this time. We will continue to closely monitor her for any acute changes and to see how she responds to medical management. (2) Severe sepsis: Code(s): A41.9 - Sepsis, unspecified organism; R65.20 - Severe sepsis without septic shock Status: Acute Assessment and Plan: Presented with hypotension, septic shock, lactic acidosis, NILES, and rhabdomyolysis. Could be secondary to colitis, pneumonia, or question of possible urinary source, but less likely. C.Diff negative, stool cultures being sent. Blood and urine cultures pending. Still requiring vasopressor support. Lactic acid trending down to 3.6. Continue IV fluid resuscitation, broad-spectrum IV antibiotics, and trend labs. Wean vasopressors as tolerated. (3) Rhabdomyolysis: Code(s): M62.82 - Rhabdomyolysis Status: Acute Assessment and Plan: Patient found down at home for an unknown amount of time. Elevated CK, hyperkalemia, and NILES on admission. Continue IV fluids and monitor labs. (4) Acute kidney injury: Code(s): N17.9 - Acute kidney failure, unspecified Status: Acute Assessment and Plan: Creatinine 5.0 on admission and trending down to 4.2 today. Continue IV fluid resuscitation. Nephrology consulted. (5) Metabolic acidosis: Code(s): E87.2 - Acidosis Status: Acute Assessment and Plan: Resolving. Plating Equipment Tender is switching her IV bicarb drip to NS. (6) Pneumonia: Code(s): J18.9 - Pneumonia, unspecified organism Status: Acute Assessment and Plan: Possible pneumonia suggested on chest x-ray, but CT suggests atelectasis. Currently on IV Azithromycin for coverage. Management per primary team. (7) Hyperkalemia: Code(s): E87.5 - Hyperkalemia Status: Acute Assessment and Plan: Potassium coming down with insulin, D50, bicarb, calcium, and Kayexalate. K+ now down to 5.2. Continue to monitor labs. Patient was on lasix, potassium, and meloxicam at home, which is now on hold. (8) Encephalopathy: Code(s): G93.40 - Encephalopathy, unspecified Status: Acute (9) Elevated troponin: Code(s): R77.8 - Other specified abnormalities of plasma proteins Status: Acute (10) Parkinsons disease: Code(s): G20 - Parkinson's disease Status: Acute Additional Plan I have discussed the patient's case and plan of care with Dr. Christianson. Thank you for allowing us to see the patient in consultation and we will continue to follow along with you. History of Present Illness Consult details Consult date: 07/30/21 Reason for consult: other (Colitis, lactic acidosis) Requesting physician: Alfredo Ragland MD Narrative: This is an 81-year-old female with a history of Parkinson's, hypertension, and hyperlipidemia, who was brought to the ER yesterday via EMS from home due to altered mental status. The patient is able to answer simple questions, but is confused and disoriented to time and place. She is not sure of the events over the last few days, therefore her history is primarily obtained from review of the electronic medical record. The patient's daughter had reported her having some cold symptoms about 1 week ag
--- NOTE | 2021-07-30 13:50 | PM.CNNEP ---
Assessment and Plan Additional Plan 1. Acute kidney injury. The patient has urinalysis which shows some blood, protein and few white blood cells. Her CT scan shows no obstruction. The patient has acute kidney injury. She has multiple issues that would contribute to this. She has hypotension which has been severe. She has received lots of IV fluids and pressors and the blood pressure is better. The patient has rhabdomyolysis. CK is high enough to cause kidney injury. She does have blood in the urine so pigment is spilling into the urine. She was on IV fluids with bicarbonate. Will repeat a urine pH tomorrow. She is not making very much urine now so bicarbonate in the IV fluids is not necessarily going to help her. Will check another urinalysis tomorrow and if she starts making more urine we can add bicarbonate to the fluids again. The patient was on meloxicam when she came in which is probably contributing as well. The patient is getting checked out for sepsis. This of course could do this as well. Cultures are being done and she is on antibiotics. At this point will check urine electrolytes. Will check another CPK tomorrow. 2. The patient has metabolic acidosis. She had a high anion gap as well. The delta anion gap and delta bicarbonate were fairly close. She has received IV fluids with bicarbonate to help improve the bicarbonate, but also she has metabolized the anion such that her anion gap has come down to normal. She is currently on saline alone. 3. Hyperkalemia. Patient's potassium was high. She was on potassium supplements and also on meloxicam. This has been brought down with insulin bicarb and Kayexalate. Will follow this along. 4. The patient is hyponatremia. This is most likely from her renal failure. This is not been progressive. Will keep an eye on this as she gets her fluid resuscitation. 5. The patient has hypotension. Echocardiogram is normal except for moderate pulmonary hypertension. This is likely due to dehydration from her diarrhea and poor intake but also could be from sepsis. She is getting IV fluids, pressors, and antibiotics. 6. She has hypertension. Her blood pressure meds are on hold of course. 7. The patient has colitis. Surgery has been consulted. She is on antibiotics. Stool cultures have been done History of Present Illness Reason for Consult Consult date: 07/30/21 Chief Complaint Chief complaint: sepsis,pneumonia,kellen History of Present Illness Narrative: Alba is an unfortunate 81-year-old lady who has multiple medical problems including hypertension, hyperlipidemia, Parkinson's disease, glaucoma, history of pancreatitis, history of bowel obstruction. History obtained from the chart and little bit from the patient. Apparently patient had symptoms of upper respiratory infection about a week ago according to daughter. A few days before admission the patient was checked on with a welfare check and she was lying in bed but feeling okay. Than a home health nurse visited and she was found lying on the ground confused. They called 911 and had her brought over to the emergency room. In the ER she is found to be hypotensive with a high potassium and high creatinine. She was given IV fluids and pressors. We she was treated for sepsis. She was also given meds to lower her potassium. Her CPK was also found to be elevated. Since she has been here her potassium is come down. She has copious amounts of diarrhea and so has an FMS in place. The patient is awake and interacts patient does not remember a whole lot. She does not have underlying kidney disease she says. Her primary care doctor was Dr. Denny and then he retired in she sees a different doctor now. The patient has longstanding hypertension. She does not have any pain in her chest belly or limbs. She does not have any shortness of breath right now. She does not remember much else. At home she has been on diuretics, meloxicam, simvastatin.
[2021-07-30] MEDS: CALCIUM CHLOR 1,000MG/100ML NS 1,000 MG/100 ML BAG 100 MG IVPB (14:13)
[2021-07-30 16:43] LABS: Glucose Point of Care 81 mg/dl (65-105)
[2021-07-30 17:10] LABS: Glucose Point of Care 177 mg/dl (65-105)
--- NOTE | 2021-07-30 17:32 | PM.IMPN ---
Progress Note: A&P Assessment and Plan (1) Septic shock: Code(s): A41.9 - Sepsis, unspecified organism; R65.21 - Severe sepsis with septic shock Status: Acute Assessment and Plan: Present on admission and supported by a low-grade fever, refractory hypotension, and lactic acidosis in the setting of pneumonia. CT of the abdomen and pelvis also shows findings consistent with possible colitis or enterocolitis. She is currently requiring vasopressor support to keep MAP 65 or greater. Lactic acid level has improved with IV fluid rehydration initially but continues to fluctuate. Blood, sputum, and urine cultures pending. Service Unit Operator on board. On vasopressin and norepinephrine infusion C diff negative COVID negative Pneumococcal and Legionella pending Dirty UA likely due to ATN Blood culture obtained pending (2) Pneumonia: Code(s): J18.9 - Pneumonia, unspecified organism Status: Acute Assessment and Plan: Patient has been started on azithromycin and ceftriaxone as well as metronidazole for possible aspiration and mucoid iron coverage. Sputum to be attempted for culture. Urine will be sent to check for Legionella and strep pneumoniae antigens. Antibiotics have been switched to ertapenem along with azithromycin Chest x-ray right upper lobe airspace disease suspicious for pneumonia CT chest reveal dependent subsegmental atelectasis with no evidence of pneumonia Likely source gastrointestinal with findings and CT of enteritis and colitis. No pneumatosis portal vein gas or free intraperitoneal gas noted On ertapenem and Flagyl for bowel coverage (3) Metabolic acidosis: Code(s): E87.2 - Acidosis Status: Acute Assessment and Plan: Secondary to sepsis and renal failure. She received IV bicarbonate push the emergency department for her hyperkalemia and she has been started on a bicarbonate drip. Bicarbonate much better today (4) Acute kidney injury: Code(s): N17.9 - Acute kidney failure, unspecified Status: Acute Assessment and Plan: Secondary to a combination of septic shock, rhabdomyolysis, hypovolemia, and nephrotoxic agent use. Conti catheter has been inserted for strict I/O. Continue judicious IV fluid rehydration with close monitoring of volume status. Nephrology consulted. Creatinine on admission 5 4.2 today (5) Rhabdomyolysis: Code(s): M62.82 - Rhabdomyolysis Status: Acute Assessment and Plan: Secondary to lying on the floor for an unknown length of time. Currently on bicarbonate drip. Trend CK levels. (6) Hyperkalemia: Code(s): E87.5 - Hyperkalemia Status: Acute Assessment and Plan: Related to acute kidney injury, acidosis, and potassium supplementation. Potassium has improved with treatment and should continue to improve with bicarbonate drip. Monitor BMP closely. (7) Encephalopathy: Code(s): G93.40 - Encephalopathy, unspecified Status: Acute Assessment and Plan: Toxic metabolic encephalopathy related to sepsis, infection, renal failure, and electrolyte abnormalities. This should improve with treatment of the above. (8) Elevated liver enzymes: Code(s): R74.8 - Abnormal levels of other serum enzymes Status: Acute Assessment and Plan: Likely related to rhabdomyolysis and sepsis. Monitor for now. Only AST elevated (9) Elevated troponin: Code(s): R77.8 - Other specified abnormalities of plasma proteins Status: Acute Assessment and Plan: Mild troponin elevation likely not due to acute coronary syndrome rather due to septic shock and acute kidney injury. EKG does not show any acute ST segment changes and she has not had any chest pain. Trend to peak and check echocardiogram given cardiomegaly on imaging (10) Parkinsons disease: Code(s): G20 - Parkinson's disease Status: Acute Assessment and Plan: Patient would benefit from
[2021-07-30 18:08] LABS: Lactic Acid Reflex 2.9 mmol/L (0.7-2.1)
[2021-07-30] MEDS: AMIODARONE 360 MG/D5W 200 ML 360 MG/200 ML BAG 16.67 MG IV CONT (18:17)
[2021-07-30 18:29] LABS: Creatinine Urine 45.5 mg/dL; Total Protein Urine Random 92 mg/dL; Ur Ttl Prot Creatinine Ratio 2.02 mg/mg (0-0.20)
[2021-07-30 18:32] LABS: Sodium Urine Random 50 meq/L
[2021-07-30 18:36] LABS: Anion Gap 12 mmol/L (8-16); Blood Urea Nitrogen 87 mg/dL (7-17); Calcium 6.7 mg/dL (8.4-10.2); Carbon Dioxide 23 mmol/L (22-30); Chloride 97 mmol/L (98-107); Estimated CRCL calculation 10 ml/min; Estimated Glomerular Filt Rate 10; Glucose 187 mg/dL (65-110); Sodium 132 mmol/L (137-145); Troponin I 0.946 ng/mL (0.000-0.034)
[2021-07-30 20:01] LABS: Cortisol Random > 123.00 ug/dL
[2021-07-30 20:09] LABS: Glucose Point of Care 126 mg/dl (65-105)
[2021-07-30] MEDS: CARBIDOPA/LEVODOPA 25/100 MG TABLET 1 TABLET PO (21:51)
[2021-07-30] MEDS: CARBIDOPA/LEVODOPA 12.5/50 MG TABLET 1 TABLET PO (22:34)
[2021-07-31] VITALS (16 sets, daily range): BP systolic 105–145; BP diastolic 52–74; PULSE 81–139; RESP 14–29; TEMP 36.4–37.6; O2SAT 93–97
[2021-07-31] MEDS: AMIODARONE 150 MG/D5W 100 ML 150 MG/100 ML BAG 600 MG IV CONT (00:13)
[2021-07-31 00:31] LABS: Glucose Point of Care 124 mg/dl (65-105)
[2021-07-31] MEDS: ALBUMIN HUMAN 25% 25 GM/100 ML 100 ML IVPB ×4 (02:16→20:08)
[2021-07-31] MEDS: metroNIDAZOLE 500 MG/ISO 100ML 500 MG/100 ML BAG 100 MG IVPB ×3 (05:23→22:33)
[2021-07-31] MEDS: SODIUM CHLORIDE 0.9% IV 1,000 ML 100 ML IV CONT (05:23)
[2021-07-31] MEDS: AMIODARONE 360 MG/D5W 200 ML 360 MG/200 ML BAG 16.67 MG IV CONT ×2 (05:24→16:10)
[2021-07-31] MEDS: HYDROCORTISONE SODIUM SUCCINATE 100 MG/2 ML VIAL IV PUSH (05:27)
[2021-07-31] MEDS: CARBIDOPA/LEVODOPA 25/100 MG TABLET 1 TABLET PO ×3 (05:27→22:26)
[2021-07-31] MEDS: CARBIDOPA/LEVODOPA 12.5/50 MG TABLET 1 TABLET PO ×3 (05:27→22:27)
[2021-07-31 05:32] LABS: Alanine Aminotransferase 22 U/L (4-35); Alkaline Phosphatase 80 U/L (38-126); Anion Gap 13 mmol/L (8-16); Aspartate Amino Transferase 278 U/L (14-36); Bilirubin,Total 0.5 mg/dL (0.2-1.3); Blood Urea Nitrogen 87 mg/dL (7-17); Calcium 7.4 mg/dL (8.4-10.2); Carbon Dioxide 23 mmol/L (22-30); Chloride 100 mmol/L (98-107); Estimated CRCL calculation 10 ml/min; Estimated Glomerular Filt Rate 10; Glucose 108 mg/dL (65-110); Magnesium 1.8 mg/dL (1.6-2.3); Phosphorus 6.4 mg/dL (2.5-4.5); Potassium 4.5 mmol/L (3.4-5.0); Sodium 136 mmol/L (137-145)
[2021-07-31] MEDS: CENTRAL LINE FLUSH 10 ML IV PUSH ×4 (05:32→22:34)
[2021-07-31 05:57] LABS: Creatine Kinase 3861 U/L (30-135)
--- NOTE | 2021-07-31 06:34 | PM.PNNEP ---
Progress Note: A&P Additional Plan 1. Acute kidney injury. The patient has urinalysis which shows some blood, protein and few white blood cells. Her CT scan shows no obstruction. Urine electrolytes are non pre renal. Etiology of the acute kidney injury is most likely multifactorial. Urine electrolytes are non pre renal so this is most likely ATN. The ATN is from hypotension, dehydration, meloxicam, colitis, and rhabdomyolysis. Urine output only 50 two days ago 400 yesterday and just overnight was 250. It seemed like the urine output is picking up a little bit with hydration and improvement in blood pressure. BUN and creatinine are about the same CPK is down to 3861 Potassium is okay and bicarbonate is okay. 2. The patient has rhabdomyolysis. CK is better. Since urine output is picking up will add bicarb to fluids again to alkalinize the urine. Check a urinalysis tomorrow. 3. Hyperkalemia. This is resolved 4. The patient is hyponatremia. This is most likely from her renal failure. This is improving 5. The patient has hypotension. Echocardiogram is normal except for moderate pulmonary hypertension. This is likely due to dehydration from her diarrhea and poor intake but also could be from sepsis. She is getting IV fluids, pressors, and antibiotics. Pressors are being weaned. 6. She has hypertension. Her blood pressure meds are on hold of course. 7. The patient has colitis. Surgery has been consulted. She is on antibiotics. Stool cultures have been done and are pending Subjective Date/time seen: 07/31/21 06:34 Interval history: Patient is awake. Still a bit confused. Slept just okay. Developed AFib with RVR last night. Review of Systems Cardiovascular: Cardiovascular: Reports no additional cardiovascular complaints Respiratory: Respiratory: Reports no additional respiratory complaints Gastrointestinal: Gastrointestinal: Reports no additional gastrointestinal complaints Genitourinary: Genitourinary: Reports no additional female genitourinary complaints Exam Narrative: WDWN in NAD skin no rash head ncat lungs clear cor reg no rub abd BS+ nontender and soft ext no edema. Objective Data Vital Signs Vital Signs: Vital Signs - 24 hr 07/30/21 07:00 07/30/21 08:00 07/30/21 09:32 Temperature 38.0 C H 38.0 C H Pulse Rate 150 H 137 H 150 H Respiratory Rate 32 H 29 H Blood Pressure 97/52 L 92/48 L 97/52 L Pulse Oximetry 94 95 07/30/21 09:55 07/30/21 10:00 07/30/21 11:13 Temperature Pulse Rate 137 H 106 H Respiratory Rate 29 H 33 H Blood Pressure 91/53 L Pulse Oximetry 93 95 82 L 07/30/21 11:14 07/30/21 12:00 07/30/21 12:55 Temperature 37.7 C H Pulse Rate 103 H 127 H 145 H Respiratory Rate 39 H Blood Pressure 90/49 L 157/91 H 166/83 H Pulse Oximetry 96 07/30/21 13:14 07/30/21 14:00 07/30/21 14:51 Temperature Pulse Rate 132 H 127 H 127 H Respiratory Rate 39 H Blood Pressure 151/106 H 174/72 H 174/72 H Pulse Oximetry 96 07/30/21 16:00 07/30/21 18:00 07/30/21 18:17 Temperature 38.0 C H Pulse Rate 113 H 80 80 Respiratory Rate 30 H 29 H Blood Pressure 154/87 H 150/58 H 150/58 H Pulse Oximetry 96 97 07/30/21 20:00 07/30/21 22:00 07/31/21 00:00 Temperature 37.7 C H 37.3 C Pulse Rate 114 H 85 84 Respiratory Rate 28 H 17 14 Blood Pressure 143/54 H 151/67 H 130/74 Pulse Oximetry 97 95 94 07/31/21 00:13 07/31/21 02:00 07/31/21 04:00 Temperature 37.4 C Pulse Rate 134 H 126 H 84 Respiratory Rate 29 H 25 H Blood Pressure 130/74 115/55 L 125/71 Pulse Oximetry 93 93 07/31/21 04:41 07/31/21 06:00 Temperature Pulse Rate 88 85 Respiratory Rate 25 H Blood Pressure 130/52 L Pulse Oximetry 97 Intake/Output Intake/Output: Intake & Output 07/28/21 07/29/21 07/30/21 07/31/21 23:59 23:59 23:59 23:59 Intake Total 3050 7760 360 Output Total 50 400 850 Balance 3000 7360 -490 Meds/Results Me
[2021-07-31 07:18] LABS: Glucose Point of Care 107 mg/dl (65-105)
[2021-07-31] MEDS: ERTAPENEM SODIUM 0.5 GM in SODIUM CHLORIDE 0.9% IV 50 ML IVPB (09:16)
[2021-07-31] MEDS: PANTOPRAZOLE SODIUM IV 40 MG VIAL IV PUSH (09:16)
[2021-07-31] MEDS: SODIUM BICARBONATE 8.4% 75 MEQ in SODIUM CHLORIDE 0.45% 1,000 ML 100 MEQ IV CONT ×2 (09:17→20:07)
[2021-07-31 09:49] LABS: Hematocrit 29.5 % (37.0-47.0); Hemoglobin 10.2 g/dL (12.0-15.0); Immature Platelet Fraction Pct 4.4 % (0.9-11.2); Mean Corpuscular HGB Conc 34.6 g/dl (32-36); Mean Corpuscular Hemoglobin 33.8 pg (26-34); Mean Corpuscular Volume 97.7 fl (80-100); Mean Platelet Volume 11.2 fl (7.4-10.4); Platelet Count Result 103 k/mm3 (150-375); Red Blood Count 3.02 M/mm3 (4.2-5.4); Red Cell Distribution Width 12.8 % (11.5-14.5); White Blood Count 13.7 K/mm3 (4.5-10.0)
--- NOTE | 2021-07-31 09:52 | PM.PNGS ---
Progress Note: A&P Assessment and Plan (1) Colitis: Code(s): K52.9 - Noninfective gastroenteritis and colitis, unspecified Status: Acute Assessment and Plan: Continues to improve with medical management. Now off vasopressors. Abdominal exam remains benign. Lactic acid normalized. Continue IV antibiotics. Okay to start clear liquids if she passes a swallow eval. Will be moving out of ICU to IMU today. Will sign off at this time. Please call us with any surgical concerns in the future. (2) Severe sepsis: Code(s): A41.9 - Sepsis, unspecified organism; R65.20 - Severe sepsis without septic shock Status: Acute Assessment and Plan: Resolving. Lactic acid 1.1 today. Now off vasopressors. Blood cx NGTD. Stool cx pending. Continue IV antibiotics and medical management. (3) Rhabdomyolysis: Code(s): M62.82 - Rhabdomyolysis Status: Acute (4) Parkinsons disease: Code(s): G20 - Parkinson's disease Status: Acute Additional Plan I have discussed the patient's case and plan of care with Dr. Christianson. Subjective Subjective Date/Time Seen: 07/31/21 09:52 Patient reports: feels better and afebrile (Since yesterday afternoon) Interval history: Patient seen and examined this morning. She is more alert and awake. She is also oriented to self and time. She can tell me she is in a hospital, but was unsure which hospital. She is also able to answer more questions appropriately today. She denies any abdominal pain or bloating. She now has a rectal tube in place containing her diarrhea. She is now off vasopressors. Per nursing, no acute events overnight. Review of Systems Review of Systems: ROS unobtainable: Yes other (As per HPI, limited due to mentation) Exam Const: General: comfortable and ill appearing acutely Orientation/consciousness: oriented to person, No oriented to place and oriented to time Resp: Effort & Inspection: no respiratory distress and tachypneic Auscultation: clear to auscultation bilaterally Cardio: Rate: regular rate Rhythm: abnormal rhythm irregularly irregular GI: Inspection: non-distended and no visible herniation GI Palp: Yes Soft to palpation, No Tenderness to palpation present (GI), No Guarding due to palpation present (GI) and No Rebound tenderness present Auscultation: normal bowel sounds Urinary Catheter: Urinary Catheter: patent and draining and urine dark Skin: General skin exam: pallor Neuro: Speech: normal speech Psych: Insight: Fair insight present (Psych) Judgement: Fair judgement present (Psych) Objective Data Vital Signs Vital Signs: Vital Signs - 24 hr 07/30/21 09:55 07/30/21 10:00 07/30/21 11:13 Temperature Pulse Rate 137 H 106 H Respiratory Rate 29 H 33 H Blood Pressure 91/53 L Pulse Oximetry 93 95 82 L 07/30/21 11:14 07/30/21 12:00 07/30/21 12:55 Temperature 100 F H Pulse Rate 103 H 127 H 145 H Respiratory Rate 39 H Blood Pressure 90/49 L 157/91 H 166/83 H Pulse Oximetry 96 07/30/21 13:14 07/30/21 14:00 07/30/21 14:51 Temperature Pulse Rate 132 H 127 H 127 H Respiratory Rate 39 H Blood Pressure 151/106 H 174/72 H 174/72 H Pulse Oximetry 96 07/30/21 16:00 07/30/21 18:00 07/30/21 18:17 Temperature 100.4 F H Pulse Rate 113 H 80 80 Respiratory Rate 30 H 29 H Blood Pressure 154/87 H 150/58 H 150/58 H Pulse Oximetry 96 97 07/30/21 20:00 07/30/21 22:00 07/31/21 00:00 Temperature 99.9 F H 99.1 F Pulse Rate 114 H 85 84 Respiratory Rate 28 H 17 14 Blood Pressure 143/54 H 151/67 H 130/74 Pulse Oximetry 97 95 94 07/31/21 00:13 07/31/21 02:00 07/31/21 04:00 Temperature 99.4 F Pulse Rate 134 H 126 H 84 Respiratory Rate 29 H 25 H Blood Pressure 130/74 115/55 L 125/71 Pulse Oximetry 93 93 07/31/21 04:41 07/31/21 06:00 07/31/21 08:00 Temperature 98.9 F Pulse Rate 88 85 81 Respiratory Rate 25 H 26 H Blood Pressure 130/52 L 131/52 L Pulse Oximetry
[2021-07-31 09:54] LABS: Lactic Acid Reflex 1.1 mmol/L (0.7-2.1)
[2021-07-31 10:33] LABS: Band Neutrophils Percent 11 % (0-6); Lymphocytes Absolute Manual 0.68 K/mm3 (1.1-4.5); Monocytes Absolute Manual 0.95 K/mm3 (0.1-0.90); Monocytes Percent Manual 7 % (3-9); Neutrophils Absolute Manual 12.05 K/mm3 (1.7-7.2); Neutrophils Percent Manual 77 % (46-73); Total Cells Counted 100
[2021-07-31 10:34] LABS: Hypochromasia 2+ (NORMAL)
--- NOTE | 2021-07-31 10:52 | WPDINTPN ---
Progress Note: A&P Assessment and Plan (1) Septic shock: Code(s): A41.9 - Sepsis, unspecified organism; R65.21 - Severe sepsis with septic shock Status: Acute Assessment and Plan: secondary to colitis with component of hypovolemia from diuresis CT chest does not suggest pneumonia. 07/29/2021: Blood cultures are negative x2, 07/29/2021: Urine culture negative -Legionella pneumococcal antigen pending -SARS-CoV-2 PCR negative on 07/29/2021 -started on Invanz and Flagyl on 07/30/2021l -IV fluids were changed to sodium bicarb per Nephrology - Patient has been off Levophed and vasopressin since the afternoon of 07/30/2019 to -start weaning hydrocortisone -will discontinue albumin today -lactic acid has normalized -surgery following the patient, recommended speech evaluation, continue antibiotics and start clear liquids (2) Atrial fibrillation: Code(s): I48.91 - Unspecified atrial fibrillation Status: Acute Assessment and Plan: patient has irregular narrow complex tachycardia on the monitor which is suggestive of atrial fibrillation Continue amiodarone infusion, currently in sinus rhythm, rate controlled -will start metoprolol on 08/01/2021 if blood pressures remain stable Not a candidate for aspirin or anticoagulation at this time (3) Colitis: Code(s): K52.9 - Noninfective gastroenteritis and colitis, unspecified Status: Acute Assessment and Plan: CT yesterday showed mild diffuse colonic wall edema with fluid throughout the colon. Consider enterocolitis C diff was negative -lactic acid has normalized, patient off all vasopressors, denies any abdominal pain but abdomen is tender on palpation. patient has lot more tenderness today and her lactic acid is elevated despite volume resuscitation and vasopressors. Surgery following the patient, recommendations as above Continue Invanz and Flagyl (4) Acute kidney injury: Code(s): N17.9 - Acute kidney failure, unspecified Status: Acute Assessment and Plan: secondary to septic shock, rhabdomyolysis, hypovolemia from Lasix and NSAIDs that she is on CT abdomen pelvis did not show stones or obstruction continue to hold hold Lasix potassium and meloxicam patient received aggressive volume resuscitation. -patient started on sodium bicarb infusion per Nephrology -off all pressors -urine output has been adequate -lactic acid has normalized -appreciate nephrology following the patient (5) Hyperkalemia: Code(s): E87.5 - Hyperkalemia Status: Acute Assessment and Plan: Hyperkalemia has resolved (6) Metabolic acidosis: Code(s): E87.2 - Acidosis Status: Acute Assessment and Plan: Started on bicarb infusion per Nephrology -continue to monitor (7) Parkinsons: Code(s): G20 - Parkinson's disease Status: Acute Assessment and Plan: continue Sinemet hold primidone (8) Pneumonia: Code(s): J18.9 - Pneumonia, unspecified organism Status: Acute Assessment and Plan: could be component of aspiration but CT was unremarkable changed antibiotic as above (9) Encephalopathy: Code(s): G93.40 - Encephalopathy, unspecified Status: Acute Assessment and Plan: likely toxic metabolic encephalopathy as patient now is alert oriented x3 CT head was negative for acute change TSH is normal (10) Rhabdomyolysis: Code(s): M62.82 - Rhabdomyolysis Status: Acute Assessment and Plan: elevated CK likely from laying on floor. level is marginally improved IV fluids with bicarb CK levels trending down (11) Hyperlipidemia: Code(s): E78.5 - Hyperlipidemia, unspecified Status: Acute Assessment and Plan: hold statin due to elevated AST and CK level (12) Elevated liver enzymes: Code(s): R74.8 - Abnormal levels of other serum enzymes Status: Acute Assessment and Pl
[2021-07-31 11:50] LABS: Glucose Point of Care 108 mg/dl (65-105)
--- NOTE | 2021-07-31 16:22 | PCSTNOTE ---
Please refer to the Bedside Swallow Evaluation in the EMR. Please note, silent aspiration cannot be ruled out at bedside.
[2021-07-31 16:32] LABS: Glucose Point of Care 116 mg/dl (65-105)
[2021-07-31 19:59] LABS: Glucose Point of Care 104 mg/dl (65-105)
[2021-07-31] MEDS: HYDROCORTISONE SODIUM SUCCINATE 100 MG/2 ML VIAL 50 MG IV PUSH (20:09)
[2021-07-31 21:29] LABS: Add Urine Microscopic? YES; Amorphous Sediment Urine Few; Appearance Urine Cloudy (Clear); Bilirubin Urine Negative (Negative); Blood Urine 3+ (Negative); Color Urine Amber (Yellow); Glucose Urine UA Negative (Negative); Ketones Urine Negative (Negative); Leukocyte Esterase Ur Trace LEU/UL (NEGATIVE); Mucus Urine Rare /lpf; Nitrate Urine Negative (Negative); Protein Urine 2+ mg/dL (Negative); RBC Urine 51-75 /hpf (0-2); Specific Grav Ur 1.016 (1.001-1.035); Squamous Epithelial Cell Urine Moderate /hpf (Few); Urobilinogen Urine Negative mg/dL (<2.0); WBC Urine 31-50 /hpf (0-3)
[2021-08-01] VITALS (17 sets, daily range): BP systolic 97–133; BP diastolic 47–103; PULSE 78–144; RESP 18–26; TEMP 37.1–37.7; O2SAT 90–99; BMI 11.0
[2021-08-01] MEDS: AMIODARONE 360 MG/D5W 200 ML 360 MG/200 ML BAG 16.67 MG IV CONT ×2 (03:36→15:13)
[2021-08-01] MEDS: metroNIDAZOLE 500 MG/ISO 100ML 500 MG/100 ML BAG 100 MG IVPB ×3 (05:11→20:57)
[2021-08-01] MEDS: CARBIDOPA/LEVODOPA 12.5/50 MG TABLET 1 TABLET PO ×2 (05:13→20:38)
[2021-08-01] MEDS: CARBIDOPA/LEVODOPA 25/100 MG TABLET 1 TABLET PO ×2 (05:13→20:39)
[2021-08-01] MEDS: CENTRAL LINE FLUSH 10 ML IV PUSH ×3 (05:13→20:44)
[2021-08-01 05:35] LABS: Basophils Percent Auto 0.1 % (0.2-1.2); Hematocrit 30.4 % (37.0-47.0); Hemoglobin 10.4 g/dL (12.0-15.0); Immature Granulocyte Absolute 0.13 K/mm3 (0.00-0.031); Immature Granulocyte Percent A 0.8 % (0-0.5); Immature Platelet Fraction Pct 6.5 % (0.9-11.2); Lymphocytes Absolute Auto 0.39 K/mm3 (0.9-3.2); Lymphocytes Percent Auto 2.4 % (18.3-44.2); Mean Corpuscular HGB Conc 34.2 g/dl (32-36); Mean Corpuscular Hemoglobin 33.1 pg (26-34); Mean Corpuscular Volume 96.8 fl (80-100); Mean Platelet Volume 11.5 fl (7.4-10.4); Monocytes Absolute Auto 0.5 K/mm3 (0.1-0.6); Monocytes Percent Auto 3.2 % (2.6-8.5); Neutrophils Absolute Auto 15.3 K/mm3 (1.3-6.7); Neutrophils Percent Auto 93.5 % (45.5-73.1); Nucleated Red Blood Cells Perc 0.1 % (0.0-0.2); Platelet Count Result 83 k/mm3 (150-375); Red Blood Count 3.14 M/mm3 (4.2-5.4); White Blood Count 16.3 K/mm3 (4.5-10.0)
[2021-08-01 05:45] LABS: Alanine Aminotransferase 15 U/L (4-35); Albumin Level 2.8 g/dL (3.5-5.1); Alkaline Phosphatase 81 U/L (38-126); Anion Gap 9 mmol/L (8-16); Aspartate Amino Transferase 128 U/L (14-36); Bilirubin,Total 0.6 mg/dL (0.2-1.3); Blood Urea Nitrogen 88 mg/dL (7-17); Calcium 7.3 mg/dL (8.4-10.2); Carbon Dioxide 28 mmol/L (22-30); Chloride 101 mmol/L (98-107); Creatine Kinase 1147 U/L (30-135); Estimated CRCL calculation 10 ml/min; Estimated Glomerular Filt Rate 10; Glucose 117 mg/dL (65-110); Magnesium 1.8 mg/dL (1.6-2.3); Phosphorus 6.4 mg/dL (2.5-4.5); Potassium 3.4 mmol/L (3.4-5.0); Sodium 138 mmol/L (137-145)
--- NOTE | 2021-08-01 06:40 | PM.PNNEP ---
Progress Note: A&P Additional Plan 1. Acute kidney injury. The patient has urinalysis which shows some blood, protein and few white blood cells. Her CT scan shows no obstruction. Urine electrolytes are non pre renal. Etiology of the acute kidney injury is most likely multifactorial. Urine electrolytes are non pre renal so this is most likely ATN. The ATN is from hypotension, dehydration, meloxicam, colitis, and rhabdomyolysis. Urine output 475 yesterday. BUN and creatinine are about the same CPK is down to 1147. Potassium is okay and bicarbonate is creeping up.. 2. The patient has rhabdomyolysis. CK is better. Down to just above 1000. Since the CK is so low I think we can stop the bicarbonate. 3. Hyperkalemia. This is resolved 4. The patient is hyponatremia. This is most likely from her renal failure. This is resolved 5. The patient has hypotension. Echocardiogram is normal except for moderate pulmonary hypertension. This is likely due to dehydration from her diarrhea and poor intake but also could be from sepsis. She is off pressors 6. She has chronic hypertension. Her blood pressure meds are on hold of course. 7. The patient has colitis. Surgery has been consulted. She is on antibiotics. Stool cultures have been done and are pending She still has an FMS Subjective Date/time seen: 08/01/21 06:40 Interval history: Patient is awake. Denies chest pain or shortness of breath Slept just okay. Exam Narrative: WDWN in NAD skin no rash or subQ nodules head ncat lungs clear bilaterally cor reg no rub abd BS+ nontender and soft ext no edema. Objective Data Vital Signs Vital Signs: Vital Signs - 24 hr 07/31/21 08:00 07/31/21 10:00 07/31/21 12:00 Temperature 37.2 C 37.6 C Pulse Rate 81 86 87 Respiratory Rate 26 H 25 H 25 H Blood Pressure 131/52 L 142/62 H 142/60 H Pulse Oximetry 94 95 96 07/31/21 14:00 07/31/21 16:00 07/31/21 18:00 Temperature 37.6 C Pulse Rate 92 87 90 Respiratory Rate 23 H 25 H 25 H Blood Pressure 145/70 H 142/60 H 116/55 L Pulse Oximetry 95 96 95 07/31/21 20:00 07/31/21 21:20 07/31/21 21:55 Temperature 36.4 C L Pulse Rate 96 Respiratory Rate 26 H Blood Pressure 105/57 L Pulse Oximetry 96 96 95 07/31/21 22:00 08/01/21 00:00 08/01/21 02:00 Temperature 37.1 C 37.2 C Pulse Rate 87 85 144 H Respiratory Rate 19 18 26 H Blood Pressure 117/72 132/62 129/74 Pulse Oximetry 97 96 94 08/01/21 03:36 08/01/21 04:00 08/01/21 06:00 Temperature 37.3 C 37.2 C Pulse Rate 96 91 87 Respiratory Rate 25 H 21 H Blood Pressure 115/55 L 126/103 H 119/57 L Pulse Oximetry 94 97 Intake/Output Intake/Output: Intake & Output 07/29/21 07/30/21 07/31/21 08/01/21 23:59 23:59 23:59 23:59 Intake Total 3050 7760 2535 220 Output Total 50 400 1575 275 Balance 3000 7360 960 -55 Meds/Results Medications: Active Medications Generic Name Dose Route Start Last Admin Trade Name Freq PRN Reason Stop Dose Admin Acetaminophen 650 mg 07/30/21 07:53 Acetaminophen 325 Mg Tablet PO Q4H PRN Mild Pain (1-3) or Fever Carbidopa/Levodopa 1 tablet 07/29/21 22:00 08/01/21 05:13 Carbidopa/Levodopa 25/100 Mg Tablet PO 1 tablet Q8HR MACO Administration Carbidopa/Levodopa 1 tablet 07/29/21 22:00 08/01/21 05:13 Carbidopa/Levodopa 12.5/50 Mg Tablet PO 1 tablet Q8HR MACO Administration Dextrose 12.5 gm 07/29/21 14:26 Dextrose 50% 25 Gm/50 Ml Syringe IV PUSH PRN PRN Hypoglycemia Protocol Glucagon 1 mg 07/29/21 14:26 Glucagon For Inj 1 Mg Vial IM PRN PRN Hypoglycemia Protocol Glucose 15 gm 07/29/21 14:26 Glucose Oral Gel 15 Gm Of Glucse In 37.5 Gm Tube PO PRN PRN Hypoglycemia Protocol Hydrocortisone Sodium Succinate 50 mg 07/31/21 21:00 07/31/21 20:09 Hydrocortisone Sodium Succinate 100 Mg/2 Ml Vial IV PUSH 08/01/21 23:59 50 mg Q1
[2021-08-01 08:06] LABS: Glucose Point of Care 131 mg/dl (65-105)
[2021-08-01] MEDS: SODIUM CHLORIDE 0.9% IV 1,000 ML 75 ML IV CONT (09:09)
[2021-08-01] MEDS: HYDROCORTISONE SODIUM SUCCINATE 100 MG/2 ML VIAL 50 MG IV PUSH ×2 (09:11→20:36)
[2021-08-01] MEDS: METOPROLOL TARTRATE 25 MG TABLET PO ×2 (09:12→20:37)
[2021-08-01] MEDS: PANTOPRAZOLE SODIUM IV 40 MG VIAL IV PUSH (09:12)
[2021-08-01] MEDS: ERTAPENEM SODIUM 0.5 GM in SODIUM CHLORIDE 0.9% IV 50 ML IVPB (09:18)
--- NOTE | 2021-08-01 11:59 | PM.IMPN ---
Progress Note: A&P Assessment and Plan (1) Septic shock: Code(s): A41.9 - Sepsis, unspecified organism; R65.21 - Severe sepsis with septic shock Status: Acute Assessment and Plan: RESOLVED secondary to colitis with component of hypovolemia from diuresis CT chest does not suggest pneumonia. 07/29/2021: Blood cultures are negative x2, 07/29/2021: Urine culture negative -Legionella pneumococcal antigen pending -SARS-CoV-2 PCR negative on 07/29/2021 -CONTINUE Invanz and Flagyl on 07/30/2021l -IV fluids were changed to 0.9% chloride per Nephrology - Patient has been off Levophed and vasopressin since the afternoon of 07/30/2021 -stress dose steroids to be weaned off today -will discontinue albumin today -lactic acid has normalized -surgery following the patient, recommended speech evaluation, continue antibiotics and start clear liquids (2) Atrial fibrillation: Code(s): I48.91 - Unspecified atrial fibrillation Status: Acute Assessment and Plan: patient has irregular narrow complex tachycardia on the monitor which is suggestive of atrial fibrillation Continue amiodarone infusion, currently in sinus rhythm, rate controlled -will restart metoprolol today, if heart rate remains stable will wean off amiodarone Not a candidate for aspirin or anticoagulation at this time (3) Colitis: Code(s): K52.9 - Noninfective gastroenteritis and colitis, unspecified Status: Acute Assessment and Plan: CT yesterday showed mild diffuse colonic wall edema with fluid throughout the colon. Consider enterocolitis C diff was negative -lactic acid has normalized, patient off all vasopressors, denies any abdominal pain but abdomen is tender on palpation. patient has lot more tenderness today and her lactic acid is elevated despite volume resuscitation and vasopressors. Surgery following the patient, recommendations as above Continue Invanz and Flagyl (4) Acute kidney injury: Code(s): N17.9 - Acute kidney failure, unspecified Status: Acute Assessment and Plan: secondary to septic shock, rhabdomyolysis, hypovolemia from Lasix and NSAIDs that she is on CT abdomen pelvis did not show stones or obstruction continue to hold hold Lasix potassium and meloxicam patient received aggressive volume resuscitation. -nephrology change her IV fluids to 0.9 % saline -off all pressors -urine output has been adequate Creatinine and BUN trending down -appreciate nephrology following the patient (5) Hyperkalemia: Code(s): E87.5 - Hyperkalemia Status: Acute Assessment and Plan: Hyperkalemia has resolved (6) Metabolic acidosis: Code(s): E87.2 - Acidosis Status: Acute Assessment and Plan: Resolved -continue to monitor (7) Parkinsons: Code(s): G20 - Parkinson's disease Status: Acute Assessment and Plan: continue Sinemet hold primidone (8) Pneumonia: Code(s): J18.9 - Pneumonia, unspecified organism Status: Acute Assessment and Plan: could be component of aspiration but CT was unremarkable changed antibiotic as above (9) Encephalopathy: Code(s): G93.40 - Encephalopathy, unspecified Status: Acute Assessment and Plan: RESOLVED likely toxic metabolic encephalopathy as patient now is alert oriented x3 CT head was negative for acute change TSH is normal (10) Rhabdomyolysis: Code(s): M62.82 - Rhabdomyolysis Status: Acute Assessment and Plan: Improving elevated CK likely from laying on floor. level is marginally improved IV fluids with bicarb CK levels trending down (11) Hyperlipidemia: Code(s): E78.5 - Hyperlipidemia, unspecified Status: Acute Assessment and Plan: hold statin due to elevated AST and CK level (12) Elevated liver enzymes: Code(s): R74.8 - Abnormal levels of other serum enzymes Status: Acute
[2021-08-01 12:23] LABS: Glucose Point of Care 133 mg/dl (65-105)
--- NOTE | 2021-08-01 15:30 | PCSTNOTE ---
Please refer to the Bedside Swallow Evaluation in the EMR. Please note, silent aspiration cannot be ruled out at bedside.
[2021-08-01] MEDS: ACETAMINOPHEN 325 MG TABLET 650 MG PO (16:57)
[2021-08-01 17:23] LABS: Glucose Point of Care 162 mg/dl (65-105)
[2021-08-01 20:22] LABS: Glucose Point of Care 153 mg/dl (65-105)
[2021-08-02] VITALS (30 sets, daily range): BP systolic 71–121; BP diastolic 31–67; PULSE 73–134; RESP 0–32; TEMP 36.3–37.1; O2SAT 89–95
[2021-08-02 01:13] LABS: Glucose Point of Care 142 mg/dl (65-105)
[2021-08-02] MEDS: SODIUM CHLORIDE 0.9% IV 1,000 ML 75 ML IV CONT ×2 (01:17→16:59)
[2021-08-02 01:21] LABS: Pneumococcal Antigen Urine Detected (Not Detected)
[2021-08-02] MEDS: AMIODARONE 360 MG/D5W 200 ML 360 MG/200 ML BAG 16.67 MG IV CONT (05:00)
[2021-08-02] MEDS: metroNIDAZOLE 500 MG/ISO 100ML 500 MG/100 ML BAG 100 MG IVPB ×3 (05:05→20:38)
[2021-08-02] MEDS: CARBIDOPA/LEVODOPA 12.5/50 MG TABLET 1 TABLET PO ×3 (05:07→20:39)
[2021-08-02] MEDS: CARBIDOPA/LEVODOPA 25/100 MG TABLET 1 TABLET PO ×3 (05:07→20:39)
[2021-08-02] MEDS: ACETAMINOPHEN 325 MG TABLET 650 MG PO ×3 (05:49→18:22)
[2021-08-02] MEDS: CENTRAL LINE FLUSH 10 ML IV PUSH ×3 (05:50→20:39)
[2021-08-02 06:02] LABS: Alanine Aminotransferase 14 U/L (4-35); Albumin Level 2.5 g/dL (3.5-5.1); Alkaline Phosphatase 82 U/L (38-126); Anion Gap 12 mmol/L (8-16); Aspartate Amino Transferase 74 U/L (14-36); Bilirubin,Total 0.6 mg/dL (0.2-1.3); Blood Urea Nitrogen 98 mg/dL (7-17); Calcium 7.5 mg/dL (8.4-10.2); Carbon Dioxide 22 mmol/L (22-30); Chloride 103 mmol/L (98-107); Creatine Kinase 533 U/L (30-135); Estimated CRCL calculation 11 ml/min; Estimated Glomerular Filt Rate 11; Glucose 137 mg/dL (65-110); Magnesium 1.9 mg/dL (1.6-2.3); Phosphorus 6.5 mg/dL (2.5-4.5); Potassium 3.8 mmol/L (3.4-5.0); Sodium 137 mmol/L (137-145)
[2021-08-02] MEDS: METOPROLOL TARTRATE 25 MG TABLET PO (09:16)
[2021-08-02] MEDS: PANTOPRAZOLE SODIUM IV 40 MG VIAL IV PUSH (09:16)
[2021-08-02] MEDS: ERTAPENEM SODIUM 0.5 GM in SODIUM CHLORIDE 0.9% IV 50 ML IVPB (09:18)
[2021-08-02 09:32] LABS: Glucose Point of Care 130 mg/dl (65-105)
--- NOTE | 2021-08-02 09:44 | PM.IMPN ---
Progress Note: A&P Assessment and Plan (1) Atrial fibrillation: Code(s): I48.91 - Unspecified atrial fibrillation Status: Acute (2) Colitis: Code(s): K52.9 - Noninfective gastroenteritis and colitis, unspecified Status: Acute (3) Hypertension: Code(s): I10 - Essential (primary) hypertension Status: Acute (4) Hyperlipidemia: Code(s): E78.5 - Hyperlipidemia, unspecified Status: Acute (5) Parkinsons disease: Code(s): G20 - Parkinson's disease Status: Acute (6) Severe sepsis: Code(s): A41.9 - Sepsis, unspecified organism; R65.20 - Severe sepsis without septic shock Status: Acute (7) JOSE ALBERTO (acute kidney injury): Code(s): N17.9 - Acute kidney failure, unspecified Status: Acute (8) Pneumonia of right upper lobe due to infectious organism: Code(s): J18.9 - Pneumonia, unspecified organism Status: Acute (9) Altered mental status: Qualifiers: Altered mental status type: unspecified Qualified Code(s): R41.82 - Altered mental status, unspecified Code(s): R41.82 - Altered mental status, unspecified Status: Acute (10) Hyperkalemia: Code(s): E87.5 - Hyperkalemia Status: Acute (11) Rhabdomyolysis: Code(s): M62.82 - Rhabdomyolysis Status: Acute (12) Elevated liver enzymes: Code(s): R74.8 - Abnormal levels of other serum enzymes Status: Acute (13) Elevated troponin: Code(s): R77.8 - Other specified abnormalities of plasma proteins Status: Acute (14) Hypotension: Qualifiers: Hypotension type: unspecified hypotension type Qualified Code(s): I95.9 - Hypotension, unspecified Code(s): I95.9 - Hypotension, unspecified Status: Acute (15) Encephalopathy: Code(s): G93.40 - Encephalopathy, unspecified Status: Acute Additional Plan 08/02/21 Jose Alberto improving cont azithromycin ertapenem and metronidazole BP labile off amiodarone on Metoprolol bolus NS 500cc decrease Metoprolol CPK normalizing supportive care c/s ST OT PT Subjective Date/time seen: 08/02/21 09:44 pt doing ok reports she is thirsty requesting fluids and food Exam Narrative: General: Ill-appearing elderly female supine in bed. Not in acute distress confused. HEENT: PERRL, EOMI. Sclerae anicteric. Dry mucous membrane Neck: Supple. No adenopathy or JVD. Respiratory: Mildly tachypneic though able to speak in full sentences. Coarse breath sounds bilaterally Cardiovascular: Regular rate and rhythm with S1-S2. Central line in the right subclavian. Gastrointestinal: Abdomen is soft and nondistended with positive bowel sounds. Mild tenderness to palpation in the periumbilical region. No voluntary guarding or rebound tenderness. Skin: Warm and dry. No rash or lesions on limited exam. Extremities: No cyanosis, clubbing, or edema. Neurological: Alert and conversant nose self states she is in hospital does know the name of the hospital. No facial asymmetry. No Focal deficits Psychiatric: Pleasant and cooperative. Appropriate mood. Objective Data Vital Signs Vital Signs: Vital Signs - 24 hr 08/01/21 10:00 08/01/21 12:00 08/01/21 14:00 Temperature 99.9 F H Pulse Rate 92 92 95 Respiratory Rate 25 H 24 H 20 Blood Pressure 117/47 L 115/60 108/68 Pulse Oximetry 96 95 99 08/01/21 16:00 08/01/21 18:00 08/01/21 20:00 Temperature 99.2 F Pulse Rate 88 87 78 Respiratory Rate 20 18 22 H Blood Pressure 106/73 122/68 Pulse Oximetry 95 92 93 08/01/21 20:21 08/01/21 20:37 08/01/21 22:00 Temperature 98.7 F Pulse Rate 82 86 81 Respiratory Rate 22 H Blood Pressure 104/53 L Pulse Oximetry 93 08/01/21 23:14 08/02/21 00:00 08/02/21 00:59 Temperature 99.2 F Pulse Rate 82 88 123 H Respiratory Rate 21 H 21 H Blood Pressure 97/55 L Pulse Oximetry 90 92 08/02/21 02:00 08/02/21 04:00 08/02/21 06:00 Temperature 98.7 F
[2021-08-02 10:28] LABS: Basophils Percent Auto 0.1 % (0.2-1.2); Hematocrit 31.6 % (37.0-47.0); Hemoglobin 10.8 g/dL (12.0-15.0); Immature Granulocyte Percent A 0.7 % (0-0.5); Lymphocytes Absolute Auto 0.65 K/mm3 (0.9-3.2); Lymphocytes Percent Auto 4.8 % (18.3-44.2); Mean Corpuscular HGB Conc 34.2 g/dl (32-36); Mean Corpuscular Hemoglobin 32.5 pg (26-34); Mean Corpuscular Volume 95.2 fl (80-100); Mean Platelet Volume 11.3 fl (7.4-10.4); Monocytes Absolute Auto 0.6 K/mm3 (0.1-0.6); Monocytes Percent Auto 4.2 % (2.6-8.5); Neutrophils Absolute Auto 12.3 K/mm3 (1.3-6.7); Neutrophils Percent Auto 90.2 % (45.5-73.1); Nucleated Red Blood Cells Perc 0.3 % (0.0-0.2); Platelet Count Result 81 k/mm3 (150-375); Red Blood Count 3.32 M/mm3 (4.2-5.4); Red Cell Distribution Width 13.4 % (11.5-14.5); White Blood Count 13.6 K/mm3 (4.5-10.0)
[2021-08-02 10:41] LABS: Platelet Estimate Decreased (Adequate); Target Cells 1+ (NORMAL)
[2021-08-02 12:00] LABS: Glucose Point of Care 131 mg/dl (65-105)
--- NOTE | 2021-08-02 12:17 | PM.PNNEP ---
Progress Note: A&P Assessment and Plan (1) NILES (acute kidney injury): Code(s): N17.9 - Acute kidney failure, unspecified Status: Acute Assessment and Plan: due to ATN with multifactorial etiology: hypotension volume depletion NSAIDs (meloxicam) use rhabdomyolysis evaluation to date: non-prerenal urine electrolytes CT scan without obstruction CPK elevated CPK coming down creatinine a bit better by AM labs urine output relatively stable if not a bit better with stable electrolytes follow trend of repeat labs and UOP (2) Rhabdomyolysis: Code(s): M62.82 - Rhabdomyolysis Status: Acute Assessment and Plan: CPK slowly improving CO2 levels stable if not improving off bicarbonate (3) Hypotension: Qualifiers: Hypotension type: unspecified hypotension type Qualified Code(s): I95.9 - Hypotension, unspecified Code(s): I95.9 - Hypotension, unspecified Status: Acute Assessment and Plan: present on admission despite history of HTN due to diarrhea, poor oral intake, and previous shock doing better at this time BP still running a bit soft at this time BP meds remain on hold (4) Colitis: Code(s): K52.9 - Noninfective gastroenteritis and colitis, unspecified Status: Acute Assessment and Plan: as noted by imaging Surgery signed off on antibiotics follow culture data Will continue to follow. Subjective Date/time seen: 08/02/21 12:17 Chart reviewed - assuming care from Dr. England; recently transferred out of the ICU; no apparent distress noted; no acute issues/problems overnight or earlier this AM; states she is hungry/thirsty in general. Exam Narrative: General: elderly female in NAD Heart: normal S1 and S2; no rub Lungs: clear to auscultation Abdomen: soft, nontender, nondistended, positive bowel sounds Extremities: no cyanosis or clubbing; no edema Skin: warm and dry Objective Data Vital Signs Vital Signs: Vital Signs Temp Pulse Resp BP Pulse Ox 08/02/21 12:00 36.9 C 82 11 L 107/52 L 92 08/02/21 10:00 87 08/02/21 09:16 84 08/02/21 08:00 36.6 C 85 14 121/57 L 92 08/02/21 06:07 36.8 C 82 24 H 107/56 L 92 08/02/21 06:00 84 08/02/21 04:00 78 21 H 92 08/02/21 02:00 37.1 C 85 22 H 110/67 92 08/02/21 00:59 123 H 08/02/21 00:00 88 21 H 92 08/01/21 23:14 37.3 C 82 21 H 97/55 L 90 08/01/21 22:00 81 08/01/21 20:37 86 08/01/21 20:21 37.1 C 82 22 H 104/53 L 93 08/01/21 20:00 78 22 H 93 Intake/Output Intake/Output: Intake & Output 07/30/21 07/31/21 08/01/21 08/02/21 23:59 23:59 23:59 23:59 Intake Total 7760 2535 3045 2340.8 Output Total 400 1575 475 800 Balance 7360 960 2570 1540.8 Meds/Results Medications: Active Medications Generic Name Dose Route Start Last Admin Trade Name Freq PRN Reason Stop Dose Admin Acetaminophen 650 mg 07/30/21 07:53 08/02/21 13:32 Acetaminophen 325 Mg Tablet PO 650 mg Q4H PRN Administration Mild Pain (1-3) or Fever Carbidopa/Levodopa 1 tablet 07/29/21 22:00 08/02/21 13:32 Carbidopa/Levodopa 25/100 Mg Tablet PO 1 tablet Q8HR MACO Administration Carbidopa/Levodopa 1 tablet 07/29/21 22:00 08/02/21 13:32 Carbidopa/Levodopa 12.5/50 Mg Tablet PO 1 tablet Q8HR MACO Administration Dextrose 12.5 gm 07/29/21 14:26 Dextrose 50% 25 Gm/50 Ml Syringe IV PUSH PRN PRN Hypoglycemia Protocol Glucagon 1 mg 07/29/21 14:26 Glucagon For Inj 1 Mg Vial IM PRN PRN Hypoglycemia Protocol Glucose 15 gm 07/29/21 14:26 Glucose Oral Gel 15 Gm Of Glucse In 37.5 Gm Tube PO PRN PRN Hypoglycemia Protocol Dextrose 1,000 mls @ 100 mls/hr 07/29/21 14:26 Dextrose 5% 1,000 Ml IVPB PRN PRN Hypoglycemia Protocol Metronidazole 500 mg in 100 mls @ 100 mls/hr 07/29/21 14:00
--- NOTE | 2021-08-02 12:17 | P.PNNP_ITS ---
Progress Note: A&P Assessment and Plan (1) NILES (acute kidney injury): Code(s): N17.9 - Acute kidney failure, unspecified Status: Acute Assessment and Plan: * due to ATN with multifactorial etiology: * hypotension * volume depletion * NSAIDs (meloxicam) use * rhabdomyolysis * evaluation to date: * non-prerenal urine electrolytes * CT scan without obstruction * CPK elevated * CPK coming down * creatinine a bit better by AM labs * urine output relatively stable if not a bit better with stable electrolytes * follow trend of repeat labs and UOP (2) Rhabdomyolysis: Code(s): M62.82 - Rhabdomyolysis Status: Acute Assessment and Plan: * CPK slowly improving * CO2 levels stable if not improving * off bicarbonate (3) Hypotension: Qualifiers: Hypotension type: unspecified hypotension type Qualified Code(s): I95.9 - Hypotension, unspecified Code(s): I95.9 - Hypotension, unspecified Status: Acute Assessment and Plan: * present on admission despite history of HTN * due to diarrhea, poor oral intake, and previous shock * doing better at this time * BP still running a bit soft at this time * BP meds remain on hold (4) Colitis: Code(s): K52.9 - Noninfective gastroenteritis and colitis, unspecified Status: Acute Assessment and Plan: * as noted by imaging * Surgery signed off * on antibiotics * follow culture data Will continue to follow. Subjective Date/time seen: 08/02/21 12:17 Chart reviewed - assuming care from Dr. England; recently transferred out of the ICU; no apparent distress noted; no acute issues/problems overnight or earlier this AM; states she is hungry/thirsty in general. Exam Narrative: General: elderly female in NAD Heart: normal S1 and S2; no rub Lungs: clear to auscultation Abdomen: soft, nontender, nondistended, positive bowel sounds Extremities: no cyanosis or clubbing; no edema Skin: warm and dry Objective Data Vital Signs Vital Signs: Vital Signs Temp Pulse Resp BP Pulse Ox 08/02/21 12:00 36.9 C 82 11 L 107/52 L 92 08/02/21 10:00 87 08/02/21 09:16 84 08/02/21 08:00 36.6 C 85 14 121/57 L 92 08/02/21 06:07 36.8 C 82 24 H 107/56 L 92 08/02/21 06:00 84 08/02/21 04:00 78 21 H 92 08/02/21 02:00 37.1 C 85 22 H 110/67 92 08/02/21 00:59 123 H 08/02/21 00:00 88 21 H 92 08/01/21 23:14 37.3 C 82 21 H 97/55 L 90 08/01/21 22:00 81 08/01/21 20:37 86 08/01/21 20:21 37.1 C 82 22 H 104/53 L 93 08/01/21 20:00 78 22 H 93 Intake/Output Intake/Output: Intake & Output 07/30/21 07/31/21 08/01/21 08/02/21 23:59 23:59 23:59 23:59 Intake Total 7760 2535 3045 2340.8 Output Total 400 1575 475 800 Balance 7360 960 2570 1540.8 Meds/Results Medications: Active Medications Generic Name Dose Route Start Last Admin Trade Name Freq PRN Reason Stop Dose Admin Acetaminophen 650 mg 07/30/21 07:53 08/02/21 13:32 Acetaminophen 325 Mg Tablet PO 650 mg Q4H PRN Administration Mild Pain (1-3) or Fever Carbidopa/Levodopa 1 ta
[2021-08-02] MEDS: SODIUM CHLORIDE 0.9% IV 250 ML 999 ML IV CONT ×2 (16:19→16:50)
[2021-08-02 17:05] LABS: Glucose Point of Care 115 mg/dl (65-105)
[2021-08-02 19:46] LABS: Legionella pneumophila Ag Ur Not Detected (Not Detected)
[2021-08-02] MEDS: SODIUM CHLORIDE 0.9% IV 500 ML IV CONT (20:38)
[2021-08-02 21:03] LABS: Glucose Point of Care 104 mg/dl (65-105)
[2021-08-03] VITALS (66 sets, daily range): BP systolic 51–113; BP diastolic 30–57; PULSE 71–91; RESP 0–24; TEMP 36–36.8; O2SAT 90–100; BMI 32.1
--- NOTE | 2021-08-03 | PC.NURSE ---
patient is not running a temperature and has not all day either. patient is diaphoretic and c/o: being hot. cool cloth given. patients blood pressure has been running in the 70's to 90's systolic since around 4 pm with a couple boluses of fluid given. dr scherer is aware and a cheetah was done to check for fluid response. now a new bolus is started . will continue to monitor. vitals charted.
[2021-08-03] MEDS: SODIUM CHLORIDE 0.9% IV 1,000 ML 500 ML IV CONT (00:04)
[2021-08-03 00:09] LABS: Glucose Point of Care 101 mg/dl (65-105)
[2021-08-03] MEDS: SODIUM CHLORIDE 0.9% IV 500 ML IV CONT (02:15)
[2021-08-03] MEDS: SODIUM CHLORIDE 0.9% IV 1,000 ML 100 ML IV CONT (02:15)
[2021-08-03] MEDS: CARBIDOPA/LEVODOPA 25/100 MG TABLET 1 TABLET PO ×3 (04:37→22:26)
[2021-08-03] MEDS: CARBIDOPA/LEVODOPA 12.5/50 MG TABLET 1 TABLET PO ×3 (04:37→22:26)
[2021-08-03] MEDS: ACETAMINOPHEN 325 MG TABLET 650 MG PO (04:37)
[2021-08-03] MEDS: metroNIDAZOLE 500 MG/ISO 100ML 500 MG/100 ML BAG 100 MG IVPB ×3 (04:40→22:24)
[2021-08-03] MEDS: CENTRAL LINE FLUSH 10 ML IV PUSH ×3 (04:41→22:26)
[2021-08-03 05:05] LABS: Glucose Point of Care 83 mg/dl (65-105)
[2021-08-03 05:45] LABS: Alanine Aminotransferase 12 U/L (4-35); Albumin Level 2.2 g/dL (3.5-5.1); Alkaline Phosphatase 58 U/L (38-126); Anion Gap 12 mmol/L (8-16); Aspartate Amino Transferase 41 U/L (14-36); Bilirubin,Total 0.6 mg/dL (0.2-1.3); Blood Urea Nitrogen 98 mg/dL (7-17); Calcium 7.4 mg/dL (8.4-10.2); Carbon Dioxide 23 mmol/L (22-30); Chloride 104 mmol/L (98-107); Creatine Kinase 242 U/L (30-135); Estimated CRCL calculation 11 ml/min; Estimated Glomerular Filt Rate 11; Glucose 99 mg/dL (65-110); Magnesium 1.7 mg/dL (1.6-2.3); Phosphorus 6.5 mg/dL (2.5-4.5); Potassium 3.3 mmol/L (3.4-5.0); Sodium 139 mmol/L (137-145)
--- NOTE | 2021-08-03 06:47 | P.PNCROSS_ITS ---
Event Note Event Note Event Note: Nursing staff called me intermittently through the night due to patient having low blood pressures. Patient started having low blood pressures around 4:00 p.m. on the . She received 1 bolus of 500 mL of normal saline prior to shift change. Nursing staff called me after the patient had received bolus and her blood pressures had only improved minimally. I ordered another 500 mL bolus. After repeat 500 mL bolus patient's blood pressures had improved somewhat but I requested cheetah score be performed. Cheetah score demonstrated 17% fluid responsive state. An additional 1 L fluid bolus was administered. The patient's blood pressures did briefly improve up to 94/49 but dropped again on repeat evaluation. The patient's urine output did improve slightly after the fluid boluses with approximately 200 mL of urine output. I did give an order for 500 mL more than fluid bolus for a total of 2.5 L. the patient was transferred to the ICU for pressor administration. The patient's care was discussed with beam machine operator at shift change. 30 minute spent in critical care activities. Due to a high probability of clinically significant, life threatening deterioration, the patient required my highest level of preparedness to intervene emergently and I personally spent this critical care time directly and personally managing the patient. This critical care time included obtaining a history; examining the patient; pulse oximetry; ordering and review of studies; arranging urgent treatment with development of a management plan; evaluation of patient's response to treatment; frequent reassessment; and discussions with other providers. It was exclusive of separately billable procedures and treating other patients and teaching time. Please see Assessment and Plan section and the rest of the note for further information on patient assessment and treatment.
[2021-08-03] MEDS: NOREPINEPHRINE 8 MG/D5W 250 ML 8 MG/250 ML BAG 9.38 MG IV CONT (07:28)
[2021-08-03 08:12] LABS: Hematocrit 30.8 % (37.0-47.0); Hemoglobin 10.4 g/dL (12.0-15.0); Mean Corpuscular HGB Conc 33.8 g/dl (32-36); Mean Corpuscular Hemoglobin 32.7 pg (26-34); Mean Corpuscular Volume 96.9 fl (80-100); Mean Platelet Volume 11.5 fl (7.4-10.4); Platelet Count Result 92 k/mm3 (150-375); Red Blood Count 3.18 M/mm3 (4.2-5.4); White Blood Count 12.5 K/mm3 (4.5-10.0)
[2021-08-03 08:22] LABS: Lactic Acid Reflex 0.9 mmol/L (0.7-2.1)
[2021-08-03 08:47] LABS: Band Neutrophils Percent 15 % (0-6); Lymphocytes Absolute Manual 1.12 K/mm3 (1.1-4.5); Neutrophils Absolute Manual 11.37 K/mm3 (1.7-7.2); Neutrophils Percent Manual 76 % (46-73); Target Cells 1+ (NORMAL); Total Cells Counted 100
[2021-08-03 08:48] LABS: Hypochromasia 1+ (NORMAL)
[2021-08-03] MEDS: POTASSIUM CHLORIDE 20 MEQ TABLET.ER PO (09:50)
[2021-08-03] MEDS: OFLOXACIN 0.3% OPHTH SOLN 5 ML BTL 1 DROP EACH EYE (09:50)
[2021-08-03] MEDS: SERTRALINE HCL 50 MG TABLET 100 MG PO (09:51)
[2021-08-03] MEDS: SIMVASTATIN 20 MG TABLET PO (09:51)
[2021-08-03 09:56] LABS: Glucose Point of Care 106 mg/dl (65-105)
[2021-08-03] MEDS: ERTAPENEM SODIUM 0.5 GM in SODIUM CHLORIDE 0.9% IV 50 ML IVPB (09:59)
[2021-08-03] MEDS: PANTOPRAZOLE SODIUM IV 40 MG VIAL IV PUSH (09:59)
--- NOTE | 2021-08-03 10:48 | P.PNNP_ITS ---
Progress Note: A&P Assessment and Plan (1) NILES (acute kidney injury): Code(s): N17.9 - Acute kidney failure, unspecified Status: Acute Assessment and Plan: * due to ATN with multifactorial etiology: * hypotension volume depletion. Benny showed volume responsiveness so received IV fluids last night. At risk of volume overload, now blood pressure being supported with norepinephrine. She is going to get some albumin as well. Urine output is still fairly low. * NSAIDs (meloxicam) use. She is off these. * rhabdomyolysis. CPK is now down to almost normal. * evaluation to date: * non-prerenal urine electrolytes. Will repeat these. * CT scan without obstruction * CPK has come down to almost normal. * overall her persistent abdominal issues are most likely causing the persistent renal failure. * creatinine up and down around 4. * urine output has dropped off with the hypotension overnight * follow trend of repeat labs and UOP (2) Rhabdomyolysis: Code(s): M62.82 - Rhabdomyolysis Status: Acute Assessment and Plan: * CPK slowly improving * CO2 levels stable if not improving * off bicarbonate (3) Hypotension: Qualifiers: Hypotension type: unspecified hypotension type Qualified Code(s): I95.9 - Hypotension, unspecified Code(s): I95.9 - Hypotension, unspecified Status: Acute Assessment and Plan: * present on admission despite history of HTN * due to diarrhea, poor oral intake, and previous shock * doing better at this time * BP still running a bit soft at this time * BP meds remain on hold (4) Colitis: Code(s): K52.9 - Noninfective gastroenteritis and colitis, unspecified Status: Acute Assessment and Plan: * as noted by imaging * Surgery signed off * on antibiotics * follow culture data Will continue to follow. Subjective Date/time seen: 08/03/21 10:48 Interval history: Patient is awake. She is thirsty more than anything. No nausea vomiting. She still has some diarrhea. She developed low blood pressure yesterday evening. She received some IV fluids and was moved to the ICU. She is now on pressors and she is going to get some albumin. No chest pain or shortness of breath. He is on a little oxygen. Exam Narrative: General: elderly female in NAD Heart: normal S1 and S2; no rub Lungs: clear Abdomen: soft, nontender, nondistended, positive bowel sounds Extremities: no cyanosis or clubbing; no edema dorsalis pedis pulses are 1+ and equal. Skin: No rash. Objective Data Vital Signs Vital Signs: Vital Signs - 24 hr 08/02/21 12:00 08/02/21 14:00 08/02/21 16:00 Temperature 36.9 C 36.3 C L Pulse Rate 82 84 73 Respiratory Rate 11 L 20 Blood Pressure 107/52 L 71/39 L Pulse Oximetry 92 94 08/02/21 16:03 08/02/21 16:05 08/02/21 16:07 Temperature Pulse Rate Respiratory Rate Blood Pressure 76/45 L 82/40 L 84/42 L Pulse Oximetry 08/02/21 16:30 08/02/21 16:50 08/02/21 17:00 Temperature Pulse Rate Respiratory Rate Blood Pressure 85/42 L 78/42 L 102/50 L Pulse Oximetry 08/02/21 17:30 08/02/21 18:00 08/02/21 20:00 Temperature 36.5 C
--- NOTE | 2021-08-03 10:48 | PM.PNNEP ---
Progress Note: A&P Assessment and Plan (1) NILES (acute kidney injury): Code(s): N17.9 - Acute kidney failure, unspecified Status: Acute Assessment and Plan: due to ATN with multifactorial etiology: hypotension volume depletion. Benny showed volume responsiveness so received IV fluids last night. At risk of volume overload, now blood pressure being supported with norepinephrine. She is going to get some albumin as well. Urine output is still fairly low. NSAIDs (meloxicam) use. She is off these. rhabdomyolysis. CPK is now down to almost normal. evaluation to date: non-prerenal urine electrolytes. Will repeat these. CT scan without obstruction CPK has come down to almost normal. overall her persistent abdominal issues are most likely causing the persistent renal failure. creatinine up and down around 4. urine output has dropped off with the hypotension overnight follow trend of repeat labs and UOP (2) Rhabdomyolysis: Code(s): M62.82 - Rhabdomyolysis Status: Acute Assessment and Plan: CPK slowly improving CO2 levels stable if not improving off bicarbonate (3) Hypotension: Qualifiers: Hypotension type: unspecified hypotension type Qualified Code(s): I95.9 - Hypotension, unspecified Code(s): I95.9 - Hypotension, unspecified Status: Acute Assessment and Plan: present on admission despite history of HTN due to diarrhea, poor oral intake, and previous shock doing better at this time BP still running a bit soft at this time BP meds remain on hold (4) Colitis: Code(s): K52.9 - Noninfective gastroenteritis and colitis, unspecified Status: Acute Assessment and Plan: as noted by imaging Surgery signed off on antibiotics follow culture data Will continue to follow. Subjective Date/time seen: 08/03/21 10:48 Interval history: Patient is awake. She is thirsty more than anything. No nausea vomiting. She still has some diarrhea. She developed low blood pressure yesterday evening. She received some IV fluids and was moved to the ICU. She is now on pressors and she is going to get some albumin. No chest pain or shortness of breath. He is on a little oxygen. Exam Narrative: General: elderly female in NAD Heart: normal S1 and S2; no rub Lungs: clear Abdomen: soft, nontender, nondistended, positive bowel sounds Extremities: no cyanosis or clubbing; no edema dorsalis pedis pulses are 1+ and equal. Skin: No rash. Objective Data Vital Signs Vital Signs: Vital Signs - 24 hr 08/02/21 12:00 08/02/21 14:00 08/02/21 16:00 Temperature 36.9 C 36.3 C L Pulse Rate 82 84 73 Respiratory Rate 11 L 20 Blood Pressure 107/52 L 71/39 L Pulse Oximetry 92 94 08/02/21 16:03 08/02/21 16:05 08/02/21 16:07 Temperature Pulse Rate Respiratory Rate Blood Pressure 76/45 L 82/40 L 84/42 L Pulse Oximetry 08/02/21 16:30 08/02/21 16:50 08/02/21 17:00 Temperature Pulse Rate Respiratory Rate Blood Pressure 85/42 L 78/42 L 102/50 L Pulse Oximetry 08/02/21 17:30 08/02/21 18:00 08/02/21 20:00 Temperature 36.5 C Pulse Rate 83 79 Respiratory Rate 10 L Blood Pressure 97/43 L 100/43 L 92/44 L Pulse Oximetry 89 L 08/02/21 22:00 08/02/21 23:01 08/02/21 23:15 Temperature Pulse Rate 76 83 83 Respiratory Rate 6 L 24 H Blood Pressure 80/58 L Pulse Oximetry 93 93 08/02/21 23:16 08/02/21 23:17 08/02/21 23:30 Temperature Pulse Rate 81 82 82 Respiratory Rate 12 11 L 0 L Blood Pressure 73/53 L 85/31 L Pulse Oximetry 92 92 92 08/02/21 23:31 08/02/21 23:45 08/02/21 23:47 Temperature Pulse Rate 84 82 Respiratory Rate 27 H 32 H Blood Pressure 94/49 L 94/49 L Pulse Oximetry 92 92 08/03/21 00:00 08/03/21 00:01 08/03/21 00:15 Temperature 36.8 C Pulse Rate 79 77 81 Respiratory Rate 22 H 24 H 21 H Blood Pressure 86/4
--- NOTE | 2021-08-03 11:10 | WPDINTPN ---
Progress Note: A&P Assessment and Plan (1) Septic shock: Code(s): A41.9 - Sepsis, unspecified organism; R65.21 - Severe sepsis with septic shock Status: Acute Assessment and Plan: Patient hypotensive again this morning 08/03/2021 despite given 2500 mL of IV fluids in the IMU -patient was transferred to the ICU again 08/03 -started on Levophed will maintain mean arterial pressures greater than 65 mmHg -08/03: CT scan of the chest abdomen and pelvis without contrast showed persistent diffuse colonic wall thickening consistent with colitis which could be infectious, inflammatory or ischemic in etiology. Anasarca with small bilateral pleural effusions, small amount of ascites and extensive body wall edema. A few relatively acute appearing nondisplaced anterior left 5th to 8th rib fractures. - 08/03: Repeat blood cultures, urine cultures -continue ertapenem, vancomycin azithromycin -start maintenance IV fluids, LR 1000 mL at 75 mL/hour for 1 bag -started patient on albumin as she has been third-spacing -lactic acid is 0.9 on 08/0307/29/2021: Blood cultures are negative x2, 07/29/2021: Urine culture negative -07/29/2021: Pneumococcal antigen positive -SARS-CoV-2 PCR negative on 07/29/2021 -surgery signed off the patient, recommended speech evaluation, continue antibiotics (2) Atrial fibrillation: Code(s): I48.91 - Unspecified atrial fibrillation Status: Acute Assessment and Plan: Currently in sinus rhythm, rate controlled -off amiodarone infusion -metoprolol on hold Not a candidate for aspirin or anticoagulation at this time (3) Colitis: Code(s): K52.9 - Noninfective gastroenteritis and colitis, unspecified Status: Acute Assessment and Plan: Patient was initially admitted and found to have colitis on a CT scan on 07/29 showed mild diffuse colonic wall edema with fluid throughout the colon. Consider enterocolitis C diff was negative -normal lactic acid this morning on 08/03 -will have surgery evaluate the patient -continue ertapenem, vancomycin, Flagyl (4) Acute kidney injury: Code(s): N17.9 - Acute kidney failure, unspecified Status: Acute Assessment and Plan: secondary to septic shock, ATN,, hypotension, rhabdomyolysis, hypovolemia from Lasix and NSAIDs that she was on CT abdomen pelvis did not show stones or obstruction continue to hold hold Lasix potassium and meloxicam Patient received 2500 mL IV fluid bolus on 08/03 Appreciate nephrology following the patient -started on pressors, will maintain mean arterial pressures greater than 65 mmHg for adequate end organ perfusion -urine output has been low, will continue to monitor kidney functions, electrolytes and urine output (5) Parkinsons: Code(s): G20 - Parkinson's disease Status: Acute Assessment and Plan: continue Sinemet hold primidone (6) Pneumonia: Code(s): J18.9 - Pneumonia, unspecified organism Status: Acute Assessment and Plan: could be component of aspiration but CT was unremarkable changed antibiotic as above (7) Rhabdomyolysis: Code(s): M62.82 - Rhabdomyolysis Status: Acute Assessment and Plan: Resolved elevated CK likely from laying on floor. level is marginally improved CK levels trending down (8) Hyperlipidemia: Code(s): E78.5 - Hyperlipidemia, unspecified Status: Acute Assessment and Plan: hold statin due to elevated AST and CK level (9) Elevated liver enzymes: Code(s): R74.8 - Abnormal levels of other serum enzymes Status: Acute Assessment and Plan: Resolved monitor Additional Plan DVT prophylaxis - SCDs for now Stress ulcer prophylaxis - continue home PPI Nutrition -patient had a modified barium swallow test, speech evaluation okayed patient for pureed diet and thickened liquids. Code Status - 07/29 Dr. Ragland discussed code status with patient in de
[2021-08-03] MEDS: LACTATED RINGERS 1,000 ML 75 ML IV CONT (11:29)
--- NOTE | 2021-08-03 12:01 | PCPTNOTE ---
Attempted PT re-eval, per RN, patient's BP is unstable and is unable to participate in skilled therapy until this is better control. Therapy will be placed on hold until medically stable.
[2021-08-03 12:22] LABS: Glucose Point of Care 136 mg/dl (65-105)
[2021-08-03 12:38] LABS: Add Urine Microscopic? YES; Appearance Urine Clear (Clear); Bilirubin Urine Negative (Negative); Blood Urine 2+ (Negative); Color Urine Amber (Yellow); Glucose Urine UA Negative (Negative); Ketones Urine Negative (Negative); Leukocyte Esterase Ur Trace LEU/UL (NEGATIVE); Mucus Urine Rare /lpf; Nitrate Urine Negative (Negative); Protein Urine 1+ mg/dL (Negative); RBC Urine 21-50 /hpf (0-2); Specific Grav Ur 1.018 (1.001-1.035); Squamous Epithelial Cell Urine Few /hpf (Few); Urobilinogen Urine Negative mg/dL (<2.0); WBC Clumps Urine Present /HPF; WBC Urine 21-30 /hpf (0-3)
[2021-08-03] MEDS: ALBUMIN HUMAN 25% 25 GM/100 ML 100 ML IVPB ×3 (13:12→23:52)
[2021-08-03 16:13] LABS: Glucose Point of Care 189 mg/dl (65-105)
--- NOTE | 2021-08-03 16:31 | WPDGICN ---
Assessment and Plan Assessment and plan (1) Septic shock: Code(s): A41.9 - Sepsis, unspecified organism; R65.21 - Severe sepsis with septic shock Status: Acute Assessment and Plan: she was sicker on admission but again became hypotensive and transferred back to icu on levophed and antibiotics (2) Colitis: Code(s): K52.9 - Noninfective gastroenteritis and colitis, unspecified Status: Acute Assessment and Plan: she had mild abdominal pain, reviewed CT scan still with colitis (she says that had colonoscopy but years ago) could be ischemic colitis based on presentation with septic shock and elevated lactic acid (now back down to normal) surgery evaluated patient on presentation c diff negative supportive care and abx (3) Metabolic acidosis: Code(s): E87.2 - Acidosis Status: Acute Assessment and Plan: resolved but continue to monitor (4) NILES (acute kidney injury): Code(s): N17.9 - Acute kidney failure, unspecified Status: Acute Assessment and Plan: nephrology on board (5) Pneumonia: Code(s): J18.9 - Pneumonia, unspecified organism Status: Acute (6) Rhabdomyolysis: Code(s): M62.82 - Rhabdomyolysis Status: Acute Assessment and Plan: she was found in the floor, improved (7) Parkinsons: Code(s): G20 - Parkinson's disease Status: Acute GI Consult Note Consult date/time: 08/03/21 16:31 Reason for consult: colitis, septic shock HPI: Alba Black is a 81 year old female with history of Parkinson's, hypertension, and hyperlipidemia who was admitted initially 07/29 after she had altered mental status after she was found lying on the ground. Initially admitted to ICU after was found to have colitis with elevated lactic acid ~ 8 (most recent normal), septic shock that required pressors, atrial fibrillation, acute kidney injury and rhabdomyolysis. Started on antibiotics, C diff was negative and evaluated by surgery but responded to medical treatment and she eventually moved to IMU but last night was found to be hypotensive again despite fluid resuscitation, she is back on levophed. since overnight and was given 2500 mL of IV fluid bolus despite which she was hypotensive and was started on Levophed and transferred to the ICU. Repeat CT scan a/p reviewed, persistent diffuse colonic wall thickening consistent with colitis which could be infectious, inflammatory or ischemic in etiology, anasarca with small bilateral pleural effusions, small amount of ascites and extensive body wall edema. She has rectal bad with about 200ml loose dark stool. Review of Systems Constitutional: Constitutional: Reports weakness Eyes: Eyes: Reports no additional eye complaints ENT: Reports Normal hearing present Cardiovascular: Cardiovascular: Denies chest pain Respiratory: Respiratory: Denies dyspnea Gastrointestinal: Gastrointestinal: Reports diarrhea Genitourinary: Comments: koroma in place Musculoskeletal: Musculoskeletal: Denies neck pain Integumentary/Breasts: Skin/Breast: Denies dry skin Neurologic: Denies headache(s) Psychiatric: Psychiatric: Reports confusion PMFSH Past Medical History Medical History Bowel obstruction Glaucoma Hyperlipidemia Hypertension Pancreatitis Parkinsons disease Surgical History Surgical History History of arthroscopy of left knee History of cholecystectomy History of laparotomy Laparotomy due to bowel obstruction. Unable to clarify. History of total left hip arthroplasty Family History Family History Other Diabetes mellitus Family history of arthritis Family history of cardiovascular disease Hypertension Social History Social History Social History: Surrogate
[2021-08-03] MEDS: NOREPINEPHRINE 8 MG/D5W 250 ML 8 MG/250 ML BAG 28.13 MG IV CONT (19:29)
[2021-08-03 23:31] LABS: Glucose Point of Care 124 mg/dl (65-105)
[2021-08-03 23:57] LABS: Glucose Point of Care 131 mg/dl (65-105)
[2021-08-04] VITALS (13 sets, daily range): BP systolic 94–131; BP diastolic 35–80; PULSE 68–128; RESP 12–23; TEMP 36–37.1; O2SAT 91–98
[2021-08-04] MEDS: NOREPINEPHRINE 8 MG/D5W 250 ML 8 MG/250 ML BAG 28.13 MG IV CONT (03:40)
[2021-08-04 04:55] LABS: Hematocrit 31.1 % (37.0-47.0); Hemoglobin 10.2 g/dL (12.0-15.0); Mean Corpuscular HGB Conc 32.8 g/dl (32-36); Mean Corpuscular Hemoglobin 33.1 pg (26-34); Mean Platelet Volume 11.3 fl (7.4-10.4); Platelet Count Result 124 k/mm3 (150-375); Red Blood Count 3.08 M/mm3 (4.2-5.4); Red Cell Distribution Width 14.8 % (11.5-14.5); White Blood Count 13.2 K/mm3 (4.5-10.0)
[2021-08-04] MEDS: ALBUMIN HUMAN 25% 25 GM/100 ML 100 ML IVPB ×3 (05:01→17:35)
[2021-08-04] MEDS: ACETAMINOPHEN 325 MG TABLET 650 MG PO (05:01)
[2021-08-04] MEDS: metroNIDAZOLE 500 MG/ISO 100ML 500 MG/100 ML BAG 100 MG IVPB ×3 (05:02→22:35)
[2021-08-04 05:03] LABS: Alanine Aminotransferase 7 U/L (4-35); Albumin Level 2.9 g/dL (3.5-5.1); Alkaline Phosphatase 50 U/L (38-126); Anion Gap 10 mmol/L (8-16); Aspartate Amino Transferase 21 U/L (14-36); Bilirubin,Total 0.6 mg/dL (0.2-1.3); Blood Urea Nitrogen 94 mg/dL (7-17); Calcium 7.8 mg/dL (8.4-10.2); Carbon Dioxide 23 mmol/L (22-30); Chloride 107 mmol/L (98-107); Estimated CRCL calculation 11 ml/min; Estimated Glomerular Filt Rate 12; Glucose 132 mg/dL (65-110); Lipase 144 U/L (23-300); Magnesium 1.6 mg/dL (1.6-2.3); Phosphorus 7.7 mg/dL (2.5-4.5); Potassium 3.6 mmol/L (3.4-5.0); Sodium 140 mmol/L (137-145)
[2021-08-04] MEDS: CARBIDOPA/LEVODOPA 25/100 MG TABLET 1 TABLET PO ×3 (05:03→22:38)
[2021-08-04] MEDS: CARBIDOPA/LEVODOPA 12.5/50 MG TABLET 1 TABLET PO ×3 (05:03→22:38)
[2021-08-04 05:04] LABS: Lactic Acid Reflex 0.8 mmol/L (0.7-2.1)
[2021-08-04] MEDS: CENTRAL LINE FLUSH 10 ML IV PUSH ×3 (05:04→22:50)
[2021-08-04 07:41] LABS: Band Neutrophils Percent 17 % (0-6); Lymphocytes Absolute Manual 0.39 K/mm3 (1.1-4.5); Monocytes Absolute Manual 0.26 K/mm3 (0.1-0.90); Monocytes Percent Manual 2 % (3-9); Neutrophils Absolute Manual 12.54 K/mm3 (1.7-7.2); Neutrophils Percent Manual 78 % (46-73); Nucleated Red Blood Cells 2 %; Total Cells Counted 100
[2021-08-04 07:42] LABS: Platelet Estimate Decreased (Adequate)
[2021-08-04 07:43] LABS: Glucose Point of Care 135 mg/dl (65-105)
[2021-08-04] MEDS: ERTAPENEM SODIUM 0.5 GM in SODIUM CHLORIDE 0.9% IV 50 ML IVPB (09:06)
[2021-08-04] MEDS: PANTOPRAZOLE SODIUM IV 40 MG VIAL IV PUSH (09:07)
[2021-08-04] MEDS: OFLOXACIN 0.3% OPHTH SOLN 5 ML BTL 1 DROP EACH EYE (09:07)
[2021-08-04] MEDS: POTASSIUM CHLORIDE 20 MEQ TABLET.ER PO (09:10)
[2021-08-04] MEDS: SERTRALINE HCL 50 MG TABLET 100 MG PO (09:10)
[2021-08-04] MEDS: SIMVASTATIN 20 MG TABLET PO (09:10)
[2021-08-04] MEDS: ONDANSETRON INJ 4 MG/2 ML VIAL IV PUSH (09:58)
[2021-08-04 10:13] LABS: Creatinine Urine 81.9 mg/dL; Total Protein Urine Random 43 mg/dL; Ur Ttl Prot Creatinine Ratio 0.53 mg/mg (0-0.20)
--- NOTE | 2021-08-04 10:17 | P.PNNP_ITS ---
Progress Note: A&P Assessment and Plan (1) NILES (acute kidney injury): Code(s): N17.9 - Acute kidney failure, unspecified Status: Acute Assessment and Plan: * due to ATN with multifactorial etiology: * hypotension volume depletion. Benny showed volume responsiveness so received IV fluids last night. At risk of volume overload, now blood pressure being supported with norepinephrine. She is going to get some albumin as well. Urine output is still fairly low. * NSAIDs (meloxicam) use. She is off these. * rhabdomyolysis. CPK is now down to almost normal. * evaluation to date: * non-prerenal urine electrolytes. Will repeat these. * CT scan without obstruction * CPK has come down to almost normal. * her belly is not as tender today. * CT is stable. * creatinine Down to 3.7. * urine output Is still somewhat low. Urine sodium is pending. * She is on norepinephrine, getting some albumin, and getting some IV fluids. * Will check another renal panel in the morning. (2) Rhabdomyolysis: Code(s): M62.82 - Rhabdomyolysis Status: Acute Assessment and Plan: * CPK slowly improving * CO2 levels stable if not improving * off bicarbonate (3) Hypotension: Qualifiers: Hypotension type: unspecified hypotension type Qualified Code(s): I95.9 - Hypotension, unspecified Code(s): I95.9 - Hypotension, unspecified Status: Acute Assessment and Plan: * present on admission despite history of HTN * due to diarrhea, poor oral intake, and previous shock * doing better at this time * BP still running a bit soft at this time * BP meds remain on hold (4) Colitis: Code(s): K52.9 - Noninfective gastroenteritis and colitis, unspecified Status: Acute Assessment and Plan: * as noted by imaging * Surgery signed off * on antibiotics * CT scan the same. Belly seems less tender today. Subjective Date/time seen: 08/04/21 10:17 Interval history: Patient is awake. No nausea vomiting. No diarrhea today. No chest pain or shortness of breath. He is on a little oxygen. Exam Narrative: General: elderly female in NAD Heart: normal S1 and S2; no rub Lungs: clear bilaterally Abdomen: soft, nontender, nondistended, positive bowel sounds Extremities: no cyanosis or clubbing; 1+ presacral edema dorsalis pedis pulses are 1+ and equal. Skin: No rash. Objective Data Vital Signs Vital Signs: Vital Signs - 24 hr 08/03/21 10:25 08/03/21 11:00 08/03/21 12:00 Temperature Pulse Rate 86 87 86 Respiratory Rate 21 H 24 H Blood Pressure 51/32 L 95/57 L Pulse Oximetry 93 94 08/03/21 13:00 08/03/21 14:00 08/03/21 15:00 Temperature Pulse Rate 85 85 91 Respiratory Rate 19 21 H Blood Pressure 105/46 L 103/44 L Pulse Oximetry 93 93 08/03/21 15:30 08/03/21 16:00 08/03/21 17:00 Temperature Pulse Rate 88 82 84 Respiratory Rate 24 H 24 H 20 Blood Pressure 102/48 L 113/54 L Pulse Oximetry 93 93 90 08/03/21 18:00 08/03/21 18:52 08/03/21 19:07 Temperature Pulse Rate 82 81 82 Respiratory Rate Blood Pressure 87/42 L 93/34 L Pulse Oximetry
--- NOTE | 2021-08-04 10:17 | PM.PNNEP ---
Progress Note: A&P Assessment and Plan (1) NILES (acute kidney injury): Code(s): N17.9 - Acute kidney failure, unspecified Status: Acute Assessment and Plan: due to ATN with multifactorial etiology: hypotension volume depletion. Benny showed volume responsiveness so received IV fluids last night. At risk of volume overload, now blood pressure being supported with norepinephrine. She is going to get some albumin as well. Urine output is still fairly low. NSAIDs (meloxicam) use. She is off these. rhabdomyolysis. CPK is now down to almost normal. evaluation to date: non-prerenal urine electrolytes. Will repeat these. CT scan without obstruction CPK has come down to almost normal. her belly is not as tender today. CT is stable. creatinine Down to 3.7. urine output Is still somewhat low. Urine sodium is pending. She is on norepinephrine, getting some albumin, and getting some IV fluids. Will check another renal panel in the morning. (2) Rhabdomyolysis: Code(s): M62.82 - Rhabdomyolysis Status: Acute Assessment and Plan: CPK slowly improving CO2 levels stable if not improving off bicarbonate (3) Hypotension: Qualifiers: Hypotension type: unspecified hypotension type Qualified Code(s): I95.9 - Hypotension, unspecified Code(s): I95.9 - Hypotension, unspecified Status: Acute Assessment and Plan: present on admission despite history of HTN due to diarrhea, poor oral intake, and previous shock doing better at this time BP still running a bit soft at this time BP meds remain on hold (4) Colitis: Code(s): K52.9 - Noninfective gastroenteritis and colitis, unspecified Status: Acute Assessment and Plan: as noted by imaging Surgery signed off on antibiotics CT scan the same. Belly seems less tender today. Subjective Date/time seen: 08/04/21 10:17 Interval history: Patient is awake. No nausea vomiting. No diarrhea today. No chest pain or shortness of breath. He is on a little oxygen. Exam Narrative: General: elderly female in NAD Heart: normal S1 and S2; no rub Lungs: clear bilaterally Abdomen: soft, nontender, nondistended, positive bowel sounds Extremities: no cyanosis or clubbing; 1+ presacral edema dorsalis pedis pulses are 1+ and equal. Skin: No rash. Objective Data Vital Signs Vital Signs: Vital Signs - 24 hr 08/03/21 10:25 08/03/21 11:00 08/03/21 12:00 Temperature Pulse Rate 86 87 86 Respiratory Rate 21 H 24 H Blood Pressure 51/32 L 95/57 L Pulse Oximetry 93 94 08/03/21 13:00 08/03/21 14:00 08/03/21 15:00 Temperature Pulse Rate 85 85 91 Respiratory Rate 19 21 H Blood Pressure 105/46 L 103/44 L Pulse Oximetry 93 93 08/03/21 15:30 08/03/21 16:00 08/03/21 17:00 Temperature Pulse Rate 88 82 84 Respiratory Rate 24 H 24 H 20 Blood Pressure 102/48 L 113/54 L Pulse Oximetry 93 93 90 08/03/21 18:00 08/03/21 18:52 08/03/21 19:07 Temperature Pulse Rate 82 81 82 Respiratory Rate Blood Pressure 87/42 L 93/34 L Pulse Oximetry 08/03/21 19:29 08/03/21 20:00 08/03/21 21:00 Temperature 36.2 C L Pulse Rate 87 81 Respiratory Rate 16 Blood Pressure 97/40 L 91/53 L Pulse Oximetry 93 96 08/03/21 22:00 08/03/21 23:57 08/04/21 00:00 Temperature 36.4 C L Pulse Rate 74 73 79 Respiratory Rate 16 12 Blood Pressure 92/37 L 91/41 L Pulse Oximetry 95 97 97 08/04/21 02:00 08/04/21 04:00 08/04/21 06:00 Temperature 36.6 C Pulse Rate 86 83 97 Respiratory Rate 20 20 22 H Blood Pressure 106/58 L 113/48 L 110/48 L Pulse Oximetry 96 96 94 08/04/21 08:00 Temperature 36.0 C L Pulse Rate 80 Respiratory Rate 17 Blood Pressure 119/47 L Pulse Oximetry 98 Intake/Output Intake/Output: Intake & Output 08/01/21 08/02/21 08/03/21 08/04/21 23:59 23:59 23:59 23:59 Intake Total 3045 3030.3 1
[2021-08-04 10:21] LABS: Sodium Urine Random < 5 meq/L
--- NOTE | 2021-08-04 11:22 | WPDGIPROGNO ---
Progress Note: A&P Assessment and Plan (1) Colitis: Code(s): K52.9 - Noninfective gastroenteritis and colitis, unspecified Status: Acute Assessment and Plan: normalization of lactic acid but she is back on levophed CT scan with similar findings of colitis, stool sample negative for infection, had + WBC. Most likely ischemic colitis but relatively benign exam on liquid diet but still poor appetite (2) Septic shock: Code(s): A41.9 - Sepsis, unspecified organism; R65.21 - Severe sepsis with septic shock Status: Acute Assessment and Plan: by icu team, on levophed (3) Acute kidney injury: Code(s): N17.9 - Acute kidney failure, unspecified Status: Acute Assessment and Plan: probably from sepsis/atn, etc creat 3.7, nephrology on board (4) Rhabdomyolysis: Code(s): M62.82 - Rhabdomyolysis Status: Acute Assessment and Plan: previous fall, improving (5) Parkinsons disease: Code(s): G20 - Parkinson's disease Status: Acute Subjective Date/time seen: 08/04/21 11:22 Interval history: still feeling tired and weak, less abdominal pain but still poor oral intake. She has rectal contained with ~ 200ml dark liquid stool. Still on levophed, no fever. Review of Systems Review of Systems: All systems reviewed & are unremarkable except as noted in HPI and below Exam Const: General: comfortable Other: elderly female HENMT: General nose exam: Normal nares present Eyes: Sclera: sclerae normal Neck: Neck: supple Resp: Auscultation: clear to auscultation bilaterally Cardio: Rate: regular rate GI: GI Palp: Yes Soft to palpation, No Firmness to palpation present (GI) and Yes Tenderness to palpation present (GI) (mild ttp, no rebound and overall better) Auscultation: normal bowel sounds Urinary Catheter: Urinary Catheter: patent and draining Skin: General skin exam: no rashes or lesions noted Neuro: Speech: normal speech Other: awake and alert x3 but gets confused Extrem: General: normal to inspection Psych: Affect: normal affect Objective Data Vital Signs Vital Signs: Vital Signs - 24 hr 08/03/21 12:00 08/03/21 13:00 08/03/21 14:00 Temperature Pulse Rate 86 85 85 Respiratory Rate 24 H 19 Blood Pressure 105/46 L Pulse Oximetry 94 93 08/03/21 15:00 08/03/21 15:30 08/03/21 16:00 Temperature Pulse Rate 91 88 82 Respiratory Rate 21 H 24 H 24 H Blood Pressure 103/44 L 102/48 L Pulse Oximetry 93 93 93 08/03/21 17:00 08/03/21 18:00 08/03/21 18:52 Temperature Pulse Rate 84 82 81 Respiratory Rate 20 Blood Pressure 113/54 L 87/42 L Pulse Oximetry 90 08/03/21 19:07 08/03/21 19:29 08/03/21 20:00 Temperature 97.1 F L Pulse Rate 82 87 81 Respiratory Rate 16 Blood Pressure 93/34 L 97/40 L 91/53 L Pulse Oximetry 93 08/03/21 21:00 08/03/21 22:00 08/03/21 23:57 Temperature 97.5 F L Pulse Rate 74 73 Respiratory Rate 16 12 Blood Pressure 92/37 L 91/41 L Pulse Oximetry 96 95 97 08/04/21 00:00 08/04/21 02:00 08/04/21 04:00 Temperature 97.9 F Pulse Rate 79 86 83 Respiratory Rate 20 20 Blood Pressure 106/58 L 113/48 L Pulse Oximetry 97 96 96 08/04/21 06:00 08/04/21 08:00 08/04/21 10:00 Temperature 96.8 F L Pulse Rate 97 80 77 Respiratory Rate 22 H 17 12 Blood Pressure 110/48 L 119/47 L 94/37 L Pulse Oximetry 94 98 98 Intake/Output Intake/Output: Intake & Output 08/01/21 08/02/21 08/03/21 08/04/21 23:59 23:59 23:59 23:59 Intake Total 3045 3030.3 1080 4400 Output Total 475 1050 560 325 Balance 2570 1980.3 520 4075 Meds/Results Medications: Active Medications Generic Name Dose Route Start Last Admin Trade Name Freq PRN Reason Stop Dose Admin Acetaminophen 650 mg 07/30/21 07:53 08/04/21 05:01 Acetaminophen 325 Mg Tablet PO 650 mg Q4H PRN Administration Mild Pain (1-3) or Fever Carbidopa/Levodopa 1 tablet 07/29/21 22:00 08/04/21 05
[2021-08-04 11:57] LABS: Glucose Point of Care 131 mg/dl (65-105)
[2021-08-04] MEDS: VASOPRESSIN INJ 100 UNITS in DEXTROSE 5% 95 ML IV CONT (12:35)
--- NOTE | 2021-08-04 12:57 | WPDINTPN ---
Progress Note: A&P Assessment and Plan (1) Septic shock: Code(s): A41.9 - Sepsis, unspecified organism; R65.21 - Severe sepsis with septic shock Status: Acute Assessment and Plan: Patient hypotensive again on 08/03/2021 despite given 2500 mL of IV fluids in the IMU -patient was transferred to the ICU on 08/03from IMU -Levophed requirements trending up, will add vasopressin. Maintain mean arterial pressure > 65 mmHg -08/03: CT scan of the chest abdomen and pelvis without contrast showed persistent diffuse colonic wall thickening consistent with colitis which could be infectious, inflammatory or ischemic in etiology. Anasarca with small bilateral pleural effusions, small amount of ascites and extensive body wall edema. A few relatively acute appearing nondisplaced anterior left 5th to 8th rib fractures. - 08/03: Blood cultures: preliminary report is negative x2 - 08/03: urine culture pending -will check stool for C diff -continue ertapenem, vancomycin, Flagyl -continue albumin is patient is third-spacing -lactic acid is 0.8 on 08/0407/29/2021: Blood cultures are negative x2, 07/29/2021: Urine culture negative -07/29/2021: Pneumococcal antigen positive -SARS-CoV-2 PCR negative on 07/29/2021 -surgery signed off the patient, recommended speech evaluation, continue antibiotics (2) Atrial fibrillation: Code(s): I48.91 - Unspecified atrial fibrillation Status: Acute Assessment and Plan: Currently in sinus rhythm, rate controlled -off amiodarone infusion -metoprolol on hold Not a candidate for aspirin or anticoagulation at this time (3) Colitis: Code(s): K52.9 - Noninfective gastroenteritis and colitis, unspecified Status: Acute Assessment and Plan: Patient was initially admitted and found to have colitis on a CT scan on 07/29 showed mild diffuse colonic wall edema with fluid throughout the colon. Consider enterocolitis As above (4) Acute kidney injury: Code(s): N17.9 - Acute kidney failure, unspecified Status: Acute Assessment and Plan: secondary to septic shock, ATN,, hypotension, rhabdomyolysis, hypovolemia from Lasix and NSAIDs that she was on CT abdomen pelvis did not show stones or obstruction continue to hold hold Lasix potassium and meloxicam Patient received 2500 mL IV fluid bolus on 08/03 Appreciate nephrology following the patient -started on pressors, will maintain mean arterial pressures greater than 65 mmHg for adequate end organ perfusion -urine output has been low, will continue to monitor kidney functions, electrolytes and urine output (5) Parkinsons: Code(s): G20 - Parkinson's disease Status: Acute Assessment and Plan: continue Sinemet hold primidone (6) Pneumonia: Code(s): J18.9 - Pneumonia, unspecified organism Status: Acute Assessment and Plan: could be component of aspiration but CT was unremarkable changed antibiotic as above (7) Rhabdomyolysis: Code(s): M62.82 - Rhabdomyolysis Status: Acute Assessment and Plan: Resolved elevated CK likely from laying on floor. level is marginally improved CK levels trending down (8) Hyperlipidemia: Code(s): E78.5 - Hyperlipidemia, unspecified Status: Acute Assessment and Plan: hold statin due to elevated AST and CK level (9) Elevated liver enzymes: Code(s): R74.8 - Abnormal levels of other serum enzymes Status: Acute Assessment and Plan: Resolved monitor Additional Plan DVT prophylaxis - SCDs for now Stress ulcer prophylaxis - continue home PPI Nutrition -patient had a modified barium swallow test, speech evaluation okayed patient for pureed diet and thickened liquids. -fecal management system in place Discussed with Cecelia, patient's daughter and updated her with patient's condition and plan of care. She stated that she is in [place] and her brother is in
[2021-08-04 14:29] LABS: Toxigenic C. Diff NEGATIVE (NEGATIVE)
[2021-08-04] MEDS: NOREPINEPHRINE 8 MG/D5W 250 ML 8 MG/250 ML BAG 46.88 MG IV CONT ×3 (14:48→23:55)
[2021-08-04 16:25] LABS: Glucose Point of Care 157 mg/dl (65-105)
--- NOTE | 2021-08-04 16:52 | PM.IMPN ---
Progress Note: A&P Assessment and Plan (1) Septic shock: Code(s): A41.9 - Sepsis, unspecified organism; R65.21 - Severe sepsis with septic shock Status: Acute Assessment and Plan: Patient hypotensive again on 08/03/2021 despite given 2500 mL of IV fluids in the IMU -patient was transferred to the ICU on 08/03from IMU -Levophed requirements trending up, will add vasopressin. Maintain mean arterial pressure > 65 mmHg -08/03: CT scan of the chest abdomen and pelvis without contrast showed persistent diffuse colonic wall thickening consistent with colitis which could be infectious, inflammatory or ischemic in etiology. Anasarca with small bilateral pleural effusions, small amount of ascites and extensive body wall edema. A few relatively acute appearing nondisplaced anterior left 5th to 8th rib fractures. - 08/03: Blood cultures: preliminary report is negative x2 - 08/03: urine culture pending - Stool for C diff pending - Lactic Acid WNL 08/04 -continue ertapenem, vancomycin, Flagyl -continue albumin is patient is third-spacing 07/29/2021: Blood cultures are negative x2, 07/29/2021: Urine culture negative -07/29/2021: Pneumococcal antigen positive -SARS-CoV-2 PCR negative on 07/29/2021 (2) Atrial fibrillation: Qualifiers: Atrial fibrillation type: paroxysmal Qualified Code(s): I48.0 - Paroxysmal atrial fibrillation Code(s): I48.91 - Unspecified atrial fibrillation Status: Acute Assessment and Plan: Currently in sinus rhythm, rate controlled -off amiodarone infusion -metoprolol on hold -Not a candidate for aspirin or anticoagulation at this time (3) Colitis: Code(s): K52.9 - Noninfective gastroenteritis and colitis, unspecified Status: Acute Assessment and Plan: Initially admitted and found to have colitis on a CT scan on 07/29 showed mild diffuse colonic wall edema with fluid throughout the colon. As above (4) Acute kidney injury: Code(s): N17.9 - Acute kidney failure, unspecified Status: Acute Assessment and Plan: secondary to septic shock, ATN,, hypotension, rhabdomyolysis, hypovolemia from Lasix and NSAIDs that she was on CT abdomen pelvis did not show stones or obstruction continue to hold hold Lasix potassium and meloxicam Patient received 2500 mL IV fluid bolus on 08/03 Nephrology following Maintain pressures F/u lab (5) Parkinsons: Code(s): G20 - Parkinson's disease Status: Acute Assessment and Plan: continue Sinemet hold primidone (6) Pneumonia: Qualifiers: Pneumonia type: due to unspecified organism Laterality: unspecified laterality Lung location: unspecified part of lung Qualified Code(s): J18.9 - Pneumonia, unspecified organism Code(s): J18.9 - Pneumonia, unspecified organism Status: Acute Assessment and Plan: could be component of aspiration but CT was unremarkable 08/04 antibiotics changed to ertapenem, vanc, metronidazole (7) Rhabdomyolysis: Qualifiers: Rhabdomyolysis type: non-traumatic Qualified Code(s): M62.82 - Rhabdomyolysis Code(s): M62.82 - Rhabdomyolysis Status: Acute Assessment and Plan: Resolved (8) Elevated liver enzymes: Code(s): R74.8 - Abnormal levels of other serum enzymes Status: Acute Assessment and Plan: Resolved monitor Subjective Date/time seen: 08/04/21 16:52 Interval history: This is an 81-year-old female with Parkinson's, hypertension, and hyperlipidemia who presented to the emergency department with altered mental status and was found to have colitis, septic shock, atrial fibrillation, acute kidney injury. 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 Vasopressin was added 08/04/21. 08/04 visit
[2021-08-04 17:33] LABS: Glucose Point of Care 148 mg/dl (65-105)
[2021-08-04 20:32] LABS: Glucose Point of Care 172 mg/dl (65-105)
[2021-08-04] MEDS: AMIODARONE 360 MG/D5W 200 ML 360 MG/200 ML BAG 33.33 MG IV CONT (22:36)
[2021-08-04] MEDS: AMIODARONE 150 MG/D5W 100 ML 150 MG/100 ML BAG 600 MG IV CONT (22:36)
[2021-08-05] VITALS (11 sets, daily range): BP systolic 115–131; BP diastolic 41–79; PULSE 68–79; RESP 12–21; TEMP 37.1; O2SAT 92–96
[2021-08-05 00:45] LABS: Glucose Point of Care 188 mg/dl (65-105)
[2021-08-05 04:43] LABS: Basophils Percent Auto 0.1 % (0.2-1.2); Hematocrit 28.9 % (37.0-47.0); Hemoglobin 9.3 g/dL (12.0-15.0); Immature Granulocyte Absolute 0.23 K/mm3 (0.00-0.031); Immature Granulocyte Percent A 1.5 % (0-0.5); Lymphocytes Absolute Auto 0.37 K/mm3 (0.9-3.2); Lymphocytes Percent Auto 2.4 % (18.3-44.2); Mean Corpuscular HGB Conc 32.2 g/dl (32-36); Mean Corpuscular Volume 102.5 fl (80-100); Mean Platelet Volume 11.3 fl (7.4-10.4); Monocytes Absolute Auto 0.6 K/mm3 (0.1-0.6); Monocytes Percent Auto 3.8 % (2.6-8.5); Neutrophils Absolute Auto 14.3 K/mm3 (1.3-6.7); Neutrophils Percent Auto 92.2 % (45.5-73.1); Nucleated Red Blood Cells Absolute Auto 0.1 K/mm3 (0.0-0.012); Nucleated Red Blood Cells Perc 0.8 % (0.0-0.2); Platelet Count Result 156 k/mm3 (150-375); Red Blood Count 2.82 M/mm3 (4.2-5.4); Red Cell Distribution Width 15.4 % (11.5-14.5); White Blood Count 15.5 K/mm3 (4.5-10.0)
[2021-08-05 04:59] LABS: Alanine Aminotransferase 7 U/L (4-35); Albumin Level 3.1 g/dL (3.5-5.1); Alkaline Phosphatase 67 U/L (38-126); Anion Gap 15 mmol/L (8-16); Aspartate Amino Transferase 15 U/L (14-36); Bilirubin,Total 0.6 mg/dL (0.2-1.3); Blood Urea Nitrogen 98 mg/dL (7-17); Calcium 7.8 mg/dL (8.4-10.2); Carbon Dioxide 21 mmol/L (22-30); Chloride 104 mmol/L (98-107); Estimated CRCL calculation 11 ml/min; Estimated Glomerular Filt Rate 11; Glucose 194 mg/dL (65-110); Magnesium 1.6 mg/dL (1.6-2.3); Potassium 4.1 mmol/L (3.4-5.0); Sodium 140 mmol/L (137-145)
[2021-08-05] MEDS: CENTRAL LINE FLUSH 10 ML IV PUSH ×2 (05:34→14:27)
[2021-08-05] MEDS: NOREPINEPHRINE 8 MG/D5W 250 ML 8 MG/250 ML BAG 46.88 MG IV CONT (05:34)
[2021-08-05] MEDS: AMIODARONE 360 MG/D5W 200 ML 360 MG/200 ML BAG 33.33 MG IV CONT (05:35)
[2021-08-05] MEDS: metroNIDAZOLE 500 MG/ISO 100ML 500 MG/100 ML BAG 100 MG IVPB ×2 (05:37→14:13)
[2021-08-05] MEDS: CARBIDOPA/LEVODOPA 12.5/50 MG TABLET 1 TABLET PO ×2 (05:38→14:13)
[2021-08-05] MEDS: CARBIDOPA/LEVODOPA 25/100 MG TABLET 1 TABLET PO ×2 (05:38→14:13)
[2021-08-05 06:00] LABS: Vancomycin Random 10.1 ug/mL (10-20)
[2021-08-05] MEDS: PANTOPRAZOLE SODIUM IV 40 MG VIAL IV PUSH (08:53)
[2021-08-05] MEDS: SERTRALINE HCL 50 MG TABLET 100 MG PO (08:53)
[2021-08-05] MEDS: POTASSIUM CHLORIDE 20 MEQ TABLET.ER PO (08:53)
[2021-08-05] MEDS: SIMVASTATIN 20 MG TABLET PO (08:53)
[2021-08-05] MEDS: OFLOXACIN 0.3% OPHTH SOLN 5 ML BTL 1 DROP EACH EYE (08:54)
[2021-08-05] MEDS: INSULIN ASPART (*BKC) 100 UNITS/ML SUB-Q ×2 (08:59→12:40)
[2021-08-05 09:15] LABS: Glucose Point of Care 261 mg/dl (65-105)
[2021-08-05] MEDS: ERTAPENEM SODIUM 0.5 GM in SODIUM CHLORIDE 0.9% IV 50 ML IVPB (09:16)
--- NOTE | 2021-08-05 10:18 | WPDGIPROGNO ---
Progress Note: A&P Assessment and Plan (1) Colitis: Code(s): K52.9 - Noninfective gastroenteritis and colitis, unspecified Status: Acute Assessment and Plan: normalization of lactic acid but now requiring 2 pressors, still sick CT scan with similar findings of colitis, stool sample negative for infection, had + WBC, negative C diff. Most likely ischemic colitis (2) Septic shock: Code(s): A41.9 - Sepsis, unspecified organism; R65.21 - Severe sepsis with septic shock Status: Acute Assessment and Plan: by icu team, now on 2 pressors, also started on amiodarone because A fib (3) Acute kidney injury: Code(s): N17.9 - Acute kidney failure, unspecified Status: Acute Assessment and Plan: probably from sepsis/atn, etc nephrology on board (4) Rhabdomyolysis: Qualifiers: Rhabdomyolysis type: non-traumatic Qualified Code(s): M62.82 - Rhabdomyolysis Code(s): M62.82 - Rhabdomyolysis Status: Acute Assessment and Plan: previous fall, improving (5) Parkinsons disease: Code(s): G20 - Parkinson's disease Status: Acute Subjective Date/time seen: 08/05/21 10:19 Interval history: she now is requiring a 2nd pressor, not feeling well. Review of Systems Review of Systems: All systems reviewed & are unremarkable except as noted in HPI and below Exam Const: General: comfortable Other: elderly female, sick HENMT: General nose exam: Normal nares present Eyes: Sclera: sclerae normal Neck: Neck: supple Resp: Auscultation: clear to auscultation bilaterally Cardio: Rate: regular rate GI: GI Palp: Yes Soft to palpation, No Firmness to palpation present (GI) and Yes Tenderness to palpation present (GI) (diffusely) Auscultation: normal bowel sounds Other: fecal device with small amount of dark stool Urinary Catheter: Urinary Catheter: patent and draining Skin: General skin exam: no rashes or lesions noted Neuro: Speech: normal speech Other: awake and alert x3 Extrem: General: normal to inspection Psych: Affect: normal affect Objective Data Vital Signs Vital Signs: Vital Signs - 24 hr 08/04/21 12:00 08/04/21 14:00 08/04/21 16:00 Temperature 97.1 F L 97.6 F Pulse Rate 82 88 94 Respiratory Rate 12 19 23 H Blood Pressure 101/35 L 126/49 L 131/46 L Pulse Oximetry 98 97 96 08/04/21 17:45 08/04/21 20:00 08/04/21 22:00 Temperature 97.5 F L 98.8 F Pulse Rate 90 95 125 H Respiratory Rate 21 H 21 H 23 H Blood Pressure 130/47 L 100/80 102/40 L Pulse Oximetry 96 93 94 08/04/21 23:52 08/05/21 00:00 08/05/21 02:00 Temperature 97.9 F Pulse Rate 68 79 71 Respiratory Rate 23 H 17 Blood Pressure 102/45 L 125/52 L Pulse Oximetry 91 93 94 08/05/21 04:00 08/05/21 05:50 08/05/21 06:00 Temperature 98.8 F Pulse Rate 69 73 70 Respiratory Rate 20 18 Blood Pressure 125/79 130/57 L Pulse Oximetry 92 94 08/05/21 08:00 Temperature Pulse Rate 68 Respiratory Rate 16 Blood Pressure Pulse Oximetry 93 Intake/Output Intake/Output: Intake & Output 08/02/21 08/03/21 08/04/21 08/05/21 23:59 23:59 23:59 23:59 Intake Total 3030.3 1080 5750 275 Output Total 1050 560 575 125 Balance 1980.3 520 5175 150 Meds/Results Medications: Active Medications Generic Name Dose Route Start Last Admin Trade Name Freq PRN Reason Stop Dose Admin Acetaminophen 650 mg 07/30/21 07:53 08/04/21 05:01 Acetaminophen 325 Mg Tablet PO 650 mg Q4H PRN Administration Mild Pain (1-3) or Fever Carbidopa/Levodopa 1 tablet 07/29/21 22:00 08/05/21 05:38 Carbidopa/Levodopa 25/100 Mg Tablet PO 1 tablet Q8HR MACO Administration Carbidopa/Levodopa 1 tablet 07/29/21 22:00 08/05/21 05:38 Carbidopa/Levodopa 12.5/50 Mg Tablet PO 1 tablet Q8HR MACO Administration Dextrose 12.5 gm 07/29/21 14:26 Dextrose 50% 25 Gm/50 Ml Syringe IV PUSH PRN PRN Hypoglycemia Protocol Glucago
--- NOTE | 2021-08-05 10:19 | PM.IMPN ---
Progress Note: A&P Assessment and Plan (1) Septic shock: Code(s): A41.9 - Sepsis, unspecified organism; R65.21 - Severe sepsis with septic shock Status: Acute Assessment and Plan: Patient hypotensive again on 08/03/2021 despite given 2500 mL of IV fluids in the IMU -patient was transferred to the ICU on 08/03from IMU -vasopressor requirements trending up. Currently on Levophed vasopressin. Maintain mean arterial pressure > 65 mmHg -08/03: CT scan of the chest abdomen and pelvis without contrast showed persistent diffuse colonic wall thickening consistent with colitis which could be infectious, inflammatory or ischemic in etiology. Anasarca with small bilateral pleural effusions, small amount of ascites and extensive body wall edema. A few relatively acute appearing nondisplaced anterior left 5th to 8th rib fractures. - 08/03: Blood cultures: negative x2 - 08/03: urine culture negative -08/04 stool for C diff is negative -continue ertapenem, vancomycin, Flagyl -continue albumin is patient is third-spacing -lactic acid is 1.0on 08/0507/29/2021: Blood cultures are negative x2, 07/29/2021: Urine culture negative -07/29/2021: Pneumococcal antigen positive -SARS-CoV-2 PCR negative on 07/29/2021 Doing poorly overall. D/w tax lawyer and he will contact daughter re: possible comfort measures, continue as DNR. (2) Atrial fibrillation: Qualifiers: Atrial fibrillation type: paroxysmal Qualified Code(s): I48.0 - Paroxysmal atrial fibrillation Code(s): I48.91 - Unspecified atrial fibrillation Status: Acute Assessment and Plan: Currently in sinus rhythm, rate controlled -off amiodarone infusion -metoprolol on hold Not a candidate for aspirin or anticoagulation currently (3) Colitis: Code(s): K52.9 - Noninfective gastroenteritis and colitis, unspecified Status: Acute Assessment and Plan: Patient was initially admitted and found to have colitis on a CT scan on 07/29 showed mild diffuse colonic wall edema with fluid throughout the colon. As above (4) Acute kidney injury: Code(s): N17.9 - Acute kidney failure, unspecified Status: Acute Assessment and Plan: secondary to septic shock, ATN,, hypotension, rhabdomyolysis, hypovolemia from Lasix and NSAIDs that she was on CT abdomen pelvis did not show stones or obstruction continue to hold hold Lasix potassium and meloxicam Patient received 2500 mL IV fluid bolus on 08/03 Appreciate nephrology following the patient -started on pressors, will maintain mean arterial pressures greater than 65 mmHg for adequate end organ perfusion -urine output has been low, creatinine worsening. Will continue to monitor kidney functions, electrolytes and urine output Creatinine 08/05 4.0 (5) Parkinsons: Code(s): G20 - Parkinson's disease Status: Acute Assessment and Plan: continue Sinemet hold primidone (6) Pneumonia: Qualifiers: Pneumonia type: due to unspecified organism Laterality: unspecified laterality Lung location: unspecified part of lung Qualified Code(s): J18.9 - Pneumonia, unspecified organism Code(s): J18.9 - Pneumonia, unspecified organism Status: Acute Assessment and Plan: could be component of aspiration but CT was unremarkable continue antibiotics -increasing shortness of breath with increased oxygen requirement (7) Rhabdomyolysis: Qualifiers: Rhabdomyolysis type: non-traumatic Qualified Code(s): M62.82 - Rhabdomyolysis Code(s): M62.82 - Rhabdomyolysis Status: Acute Assessment and Plan: Resolved elevated CK likely from laying on floor. level is marginally improved CK levels trending down (8) Hyperlipidemia: Code(s): E78.5 - Hyperlipidemia, unspecified Status: Acute Assessment and Plan: hold statin due to elevated AST and CK level (9) Elevated liver enzymes:
--- NOTE | 2021-08-05 10:27 | P.PNNP_ITS ---
Progress Note: A&P Assessment and Plan (1) NILES (acute kidney injury): Code(s): N17.9 - Acute kidney failure, unspecified Status: Acute Assessment and Plan: * due to ATN with multifactorial etiology: * hypotension volume depletion. She may have some intravascular volume depletion but overall she is significantly fluid overloaded. Urine output is still low. * NSAIDs (meloxicam) use. She is off these. * rhabdomyolysis. CPK is now down to almost normal. * evaluation to date: * non-prerenal urine electrolytes. Will repeat these. * CT scan without obstruction * CPK has come down to almost normal. * her belly is not as tender today. * CT is stable. * creatinine Is back up to 4, not surprisingly because of her hypotension. * urine output Is still Still low, in spite of 4L of input. * She is on norepinephrine And now vasopressin. * Will check another renal panel in the morning. * Overall prognosis is grim. (2) Rhabdomyolysis: Qualifiers: Rhabdomyolysis type: non-traumatic Qualified Code(s): M62.82 - Rhabdomyolysis Code(s): M62.82 - Rhabdomyolysis Status: Acute Assessment and Plan: * CPK slowly improving * CO2 levels stable if not improving * off bicarbonate (3) Hypotension: Qualifiers: Hypotension type: unspecified hypotension type Qualified Code(s): I95.9 - Hypotension, unspecified Code(s): I95.9 - Hypotension, unspecified Status: Acute Assessment and Plan: * present on admission despite history of HTN * due to diarrhea, poor oral intake, and previous shock * doing better at this time * BP still running Low requiring 2 pressors * BP meds remain on hold (4) Colitis: Code(s): K52.9 - Noninfective gastroenteritis and colitis, unspecified Status: Acute Assessment and Plan: * as noted by imaging * Surgery signed off * on antibiotics * CT scan the same. Subjective Date/time seen: 08/05/21 10:27 Interval history: Patient is awake. No nausea vomiting. No diarrhea today. she is a bit more lethargic today. Blood pressure is lower. On 2 pressors now. Overall she looks sicker. Exam Narrative: General: elderly female in NAD Heart: normal S1 and S2; no rub Lungs: clear to auscultation Abdomen: soft, nontender, nondistended, positive bowel sounds Extremities: no cyanosis or clubbing; 1-2+ edema. She actually has some weeping Skin: No rash or subcu nodules Objective Data Vital Signs Vital Signs: Vital Signs - 24 hr 08/04/21 12:00 08/04/21 14:00 08/04/21 16:00 Temperature 36.2 C L 36.4 C Pulse Rate 82 88 94 Respiratory Rate 12 19 23 H Blood Pressure 101/35 L 126/49 L 131/46 L Pulse Oximetry 98 97 96 08/04/21 17:45 08/04/21 20:00 08/04/21 22:00 Temperature 36.4 C L 37.1 C Pulse Rate 90 95 125 H Respiratory Rate 21 H 21 H 23 H Blood Pressure 130/47 L 100/80 102/40 L Pulse Oximetry 96 93 94 08/04/21 23:52 08/05/21 00:00 08/05/21 02:00 Temperature 36.6 C Pulse Rate 68 79 71 Respiratory Rate 23 H 17 Blood Pressure 102/45 L 125/52 L Pulse Oximetry 91 93 94 08/05/21 04:00 08/05/21 05:50 08/05/21 06:00 Temperature 37.1 C Pulse Rate
--- NOTE | 2021-08-05 10:27 | PM.PNNEP ---
Progress Note: A&P Assessment and Plan (1) NILES (acute kidney injury): Code(s): N17.9 - Acute kidney failure, unspecified Status: Acute Assessment and Plan: due to ATN with multifactorial etiology: hypotension volume depletion. She may have some intravascular volume depletion but overall she is significantly fluid overloaded. Urine output is still low. NSAIDs (meloxicam) use. She is off these. rhabdomyolysis. CPK is now down to almost normal. evaluation to date: non-prerenal urine electrolytes. Will repeat these. CT scan without obstruction CPK has come down to almost normal. her belly is not as tender today. CT is stable. creatinine Is back up to 4, not surprisingly because of her hypotension. urine output Is still Still low, in spite of 4L of input. She is on norepinephrine And now vasopressin. Will check another renal panel in the morning. Overall prognosis is grim. (2) Rhabdomyolysis: Qualifiers: Rhabdomyolysis type: non-traumatic Qualified Code(s): M62.82 - Rhabdomyolysis Code(s): M62.82 - Rhabdomyolysis Status: Acute Assessment and Plan: CPK slowly improving CO2 levels stable if not improving off bicarbonate (3) Hypotension: Qualifiers: Hypotension type: unspecified hypotension type Qualified Code(s): I95.9 - Hypotension, unspecified Code(s): I95.9 - Hypotension, unspecified Status: Acute Assessment and Plan: present on admission despite history of HTN due to diarrhea, poor oral intake, and previous shock doing better at this time BP still running Low requiring 2 pressors BP meds remain on hold (4) Colitis: Code(s): K52.9 - Noninfective gastroenteritis and colitis, unspecified Status: Acute Assessment and Plan: as noted by imaging Surgery signed off on antibiotics CT scan the same. Subjective Date/time seen: 08/05/21 10:27 Interval history: Patient is awake. No nausea vomiting. No diarrhea today. she is a bit more lethargic today. Blood pressure is lower. On 2 pressors now. Overall she looks sicker. Exam Narrative: General: elderly female in NAD Heart: normal S1 and S2; no rub Lungs: clear to auscultation Abdomen: soft, nontender, nondistended, positive bowel sounds Extremities: no cyanosis or clubbing; 1-2+ edema. She actually has some weeping Skin: No rash or subcu nodules Objective Data Vital Signs Vital Signs: Vital Signs - 24 hr 08/04/21 12:00 08/04/21 14:00 08/04/21 16:00 Temperature 36.2 C L 36.4 C Pulse Rate 82 88 94 Respiratory Rate 12 19 23 H Blood Pressure 101/35 L 126/49 L 131/46 L Pulse Oximetry 98 97 96 08/04/21 17:45 08/04/21 20:00 08/04/21 22:00 Temperature 36.4 C L 37.1 C Pulse Rate 90 95 125 H Respiratory Rate 21 H 21 H 23 H Blood Pressure 130/47 L 100/80 102/40 L Pulse Oximetry 96 93 94 08/04/21 23:52 08/05/21 00:00 08/05/21 02:00 Temperature 36.6 C Pulse Rate 68 79 71 Respiratory Rate 23 H 17 Blood Pressure 102/45 L 125/52 L Pulse Oximetry 91 93 94 08/05/21 04:00 08/05/21 05:50 08/05/21 06:00 Temperature 37.1 C Pulse Rate 69 73 70 Respiratory Rate 20 18 Blood Pressure 125/79 130/57 L Pulse Oximetry 92 94 08/05/21 08:00 Temperature 37.1 C Pulse Rate 68 Respiratory Rate 16 Blood Pressure 126/57 L Pulse Oximetry 96 Intake/Output Intake/Output: Intake & Output 08/02/21 08/03/21 08/04/21 08/05/21 23:59 23:59 23:59 23:59 Intake Total 3030.3 1080 5750 275 Output Total 1050 560 575 125 Balance 1980.3 520 5175 150 Meds/Results Medications: Active Medications Generic Name Dose Route Start Last Admin Trade Name Freq PRN Reason Stop Dose Admin Acetaminophen 650 mg 07/30/21 07:53 08/04/21 05:01 Acetaminophen 325 Mg Tablet PO 650 mg Q4H PRN Administration Mild Pain (1-3) or Fever Carbidopa/Levodopa 1 tablet 07/29
--- NOTE | 2021-08-05 12:17 | WPDINTPN ---
Progress Note: A&P Assessment and Plan (1) Septic shock: Code(s): A41.9 - Sepsis, unspecified organism; R65.21 - Severe sepsis with septic shock Status: Acute Assessment and Plan: Patient hypotensive again on 08/03/2021 despite given 2500 mL of IV fluids in the IMU -patient was transferred to the ICU on 08/03from IMU -vasopressor requirements trending up. Currently on Levophed vasopressin. Maintain mean arterial pressure > 65 mmHg -08/03: CT scan of the chest abdomen and pelvis without contrast showed persistent diffuse colonic wall thickening consistent with colitis which could be infectious, inflammatory or ischemic in etiology. Anasarca with small bilateral pleural effusions, small amount of ascites and extensive body wall edema. A few relatively acute appearing nondisplaced anterior left 5th to 8th rib fractures. - 08/03: Blood cultures: negative x2 - 08/03: urine culture negative -08/04 stool for C diff is negative -continue ertapenem, vancomycin, Flagyl -continue albumin is patient is third-spacing -lactic acid is 1.0on 08/0507/29/2021: Blood cultures are negative x2, 07/29/2021: Urine culture negative -07/29/2021: Pneumococcal antigen positive -SARS-CoV-2 PCR negative on 07/29/2021 -surgery signed off the patient, recommended speech evaluation, continue antibiotics (2) Atrial fibrillation: Qualifiers: Atrial fibrillation type: paroxysmal Qualified Code(s): I48.0 - Paroxysmal atrial fibrillation Code(s): I48.91 - Unspecified atrial fibrillation Status: Acute Assessment and Plan: Currently in sinus rhythm, rate controlled -off amiodarone infusion -metoprolol on hold Not a candidate for aspirin or anticoagulation at this time (3) Colitis: Code(s): K52.9 - Noninfective gastroenteritis and colitis, unspecified Status: Acute Assessment and Plan: Patient was initially admitted and found to have colitis on a CT scan on 07/29 showed mild diffuse colonic wall edema with fluid throughout the colon. Consider enterocolitis As above (4) Acute kidney injury: Code(s): N17.9 - Acute kidney failure, unspecified Status: Acute Assessment and Plan: secondary to septic shock, ATN,, hypotension, rhabdomyolysis, hypovolemia from Lasix and NSAIDs that she was on CT abdomen pelvis did not show stones or obstruction continue to hold hold Lasix potassium and meloxicam Patient received 2500 mL IV fluid bolus on 08/03 Appreciate nephrology following the patient -started on pressors, will maintain mean arterial pressures greater than 65 mmHg for adequate end organ perfusion -urine output has been low, creatinine worsening. Will continue to monitor kidney functions, electrolytes and urine output (5) Parkinsons: Code(s): G20 - Parkinson's disease Status: Acute Assessment and Plan: continue Sinemet hold primidone (6) Pneumonia: Qualifiers: Pneumonia type: due to unspecified organism Laterality: unspecified laterality Lung location: unspecified part of lung Qualified Code(s): J18.9 - Pneumonia, unspecified organism Code(s): J18.9 - Pneumonia, unspecified organism Status: Acute Assessment and Plan: could be component of aspiration but CT was unremarkable changed antibiotic as above -increasing shortness of breath with increased oxygen requirement (7) Rhabdomyolysis: Qualifiers: Rhabdomyolysis type: non-traumatic Qualified Code(s): M62.82 - Rhabdomyolysis Code(s): M62.82 - Rhabdomyolysis Status: Acute Assessment and Plan: Resolved elevated CK likely from laying on floor. level is marginally improved CK levels trending down (8) Hyperlipidemia: Code(s): E78.5 - Hyperlipidemia, unspecified Status: Acute Assessment and Plan: hold statin due to elevated AST and CK level (9) Elevated liver enzymes: Code(s): R74.8 - A
[2021-08-05] MEDS: NOREPINEPHRINE 8 MG/D5W 250 ML 8 MG/250 ML BAG 28.13 MG IV CONT (12:19)
[2021-08-05 12:30] LABS: Glucose Point of Care 215 mg/dl (65-105)
--- NOTE | 2021-08-05 15:04 | PC.NURSE ---
Patient's POACecelia has given permission for Lyla James to mixing picker tender Alba Black's belongings from her bedside.
[2021-08-05] MEDS: MORPHINE SULFATE INJ (*CRX) 10 MG/ML AMP 5 MG IV PUSH (16:49)
[2021-08-05] MEDS: LORazepam INJ (*CRX) 2 MG/ML VIAL IV PUSH (16:51)
--- NOTE | 2021-08-05 18:03 | PC.NURSE ---
This patient, Alba Black, was transferred to [ [id number]] on 08/05/21 at 1750. Personal belongings sent with patient. Report given to [Ritu ]. Appropriate documentation sent with patient. Family at the bedside.
--- NOTE | 2021-08-05 18:28 | PC.NURSE ---
Pt transfer received from ICU to room 253.
[2021-08-05] MEDS: MORPHINE SULFATE (*CRX) 2 MG/ML INJ IV PUSH (19:04)
--- NOTE | 2021-08-09 14:28 | PM.DDS ---
Discharge Summary Date and Time Date of : 08/05/21 Time of : 19:16 Provider Pronounced By: Martha Aviles RN Probable Cause of Probable Cause of : septic shock due to pneumonia Summary Hospital Course: YVON WAS ADMITTED WITH PNEUMONIA AND SEPSIS. SHE WAS TREATED WITH BROAD SPECTRUM ANTIBIOTICS, FLUIDS AND PRESSORS. LABS SHOWED LEUKOCYTOSIS, ANEMIA, AND NILES. CXR SHOWED BILATERAL INFILTRATES. URINE AG WAS POSITIVE FOR PNEUMOCOCCUS. BLOOD AND URINE CULTURES WERE NEGATIVE. DUE TO HER AGE AND COMORBIDITIES, HER DAUGHTER, ALSO ISELA, DID NOT WISH INTUBATION. MRS. BARRETT SUCCUMBED TO THE EFFECTS OF HER SEPTIC SHOCK ON THE EVENING OF 08/05/2021. Additional Data Confirmation of as documented by pronouncing clinician: Pupillary Reflex, Palpable Pulses, Response to Stimuli, Heart Tones and Breath Sounds Name of Provider Notified: Amanda Gaviria NP Time Provider Notified: 19:47 Provider Requests Autopsy: No Family Requests Autopsy: No Hebrew Professor Notified: Yes Date [facility] Notified of : 08/05/21 Time [facility] Notified of : 19:30
== END 2021-08-05 19:16 | disposition expired | DRG 871 ==
LOC: ANHED 13:47 → ANHICU 16:26 → ANHCPC 08-01 15:56 → ANHICU 08-03 06:48 → ANH2MED 08-05 18:27
PROVIDERS: Hospitalist; Internal Medicine; Internal Medicine Nephrology; Admitting Provider Internal Medicine; Emergency Provider Emergency Medicine; PCP Family Medicine; Visit Provider Internal Medicine
DX: A41.9 Sepsis, unspecified organism (principal); R65.21 Severe sepsis with septic shock; J18.9 Pneumonia, unspecified organism; N17.0 Acute kidney failure with tubular necrosis; G92.8 Other toxic encephalopathy; K55.032 Diffuse acute (reversible) ischemia of large intestine; S22.49XA Multiple fractures of ribs, unspecified side, initial encounter for closed fracture; E87.2 Acidosis; E87.1 Hypo-osmolality and hyponatremia; M62.82 Rhabdomyolysis; J90 Pleural effusion, not elsewhere classified; E87.5 Hyperkalemia; Z20.822 Contact with and (suspected) exposure to COVID-19; G20 Parkinson's disease; E78.5 Hyperlipidemia, unspecified; R77.8 Other specified abnormalities of plasma proteins; I10 Essential (primary) hypertension; Z87.891 Personal history of nicotine dependence; H40.9 Unspecified glaucoma; E86.0 Dehydration; Z66 Do not resuscitate; I48.0 Paroxysmal atrial fibrillation; R13.10 Dysphagia, unspecified; W19.XXXA Unspecified fall, initial encounter; E86.1 Hypovolemia; R60.1 Generalized edema; Z79.899 Other long term (current) drug therapy; Z79.82 Long term (current) use of aspirin
CPT/HCPCS: 36415; 36556; 51702; 70450; 71045; 71250; 72125; 74176; 80048; 80053; 80202; 81001; 82533; 82550; 82570; 82948; 83605; 83690; 83735; 84100; 84156; 84300; 84443; 84484; 85025; 85055; 85610; 85730; 87040; 87045; 87086; 87088; 87269; 87272; 87427; 87449; 87493; 87899; 89055; 92526; 92610; 92611; 93005; 93306; 93970; 96361; 96365; 97162; 97166; 99285; A9270; C1751; C9113; C9803; J0282; J0456; J0610; J0696; J1335; J1720; J1815; J2060; J2270; J2405; J3370; J7030; J7040; J7050; J7120; P9045; P9047; U0003; U0005